=== PATIENT | male | born 1945 | race Caucasian/White ===

== ENCOUNTER 2017-05-14 14:25 | Inpatient (IN) | payer OTHER, MEDICARE ==
[~2017-05-14] VITALS: Ht 180.3 cm; Wt 129.3 kg
[~2017-05-14 14:25] MED LIST: ATEN25; IBUP200
[2017-05-14] MEDS ORDERED: BUPR75 PO (15:10)
[2017-05-14] MEDS ORDERED: BONE ESSENT166.75 MG PO (15:11)
[2017-05-14] MEDS ORDERED: Omeprazole20 M1 PO (15:11)
[2017-05-14] MEDS ORDERED: CHOL10002 PO (15:11)
[2017-05-14] MEDS ORDERED: TAMS.4ER PO (15:12)
[2017-05-14] MEDS ORDERED: Prinivil10 MG PO (18:52)
[2017-05-14 22:25] LABS: Hemoglobin 8.9 g/dL (13.5-17.5)
[2017-05-15] MEDS ORDERED: CITA20 PO (03:26)
[2017-05-15 05:03] LABS: BASOPHILS ABSOLUTE AUTO 0.01 K/mm3 (0.00-0.23); BASOPHILS PERCENT AUTO 0 % (0-2); EOSINOPHILS ABSOLUTE AUTO 0.08 K/mm3 (0.00-0.68); EOSINOPHILS PERCENT AUTO 2 % (0-6); Hematocrit 26.1 % (37.0-53.0); Hemoglobin 8.7 g/dL (13.5-17.5); IMMATURE GRAN ABSOLUTE AUTO 0.02 K/mm3 (0.00-0.10); IMMATURE GRAN PERCENT AUTO 0 % (0-1); LYMPHOCYTES ABSOLUTE AUTO 0.61 K/mm3 (0.84-5.20); LYMPHOCYTES PERCENT AUTO 13 % (21-46); MONOCYTES PERCENT AUTO 10 % (4-13); Mean Corpuscular HGB 31.3 pg (26.0-34.0); Mean Corpuscular HGB Conc 33.3 g/dL (31.5-36.5); Mean Corpuscular Volume 94 fL (80-100); NEUTROPHILS ABSOLUTE AUTO 3.66 K/mm3 (1.96-9.15); NEUTROPHILS PERCENT AUTO 75 % (41-73); Platelet Count 122 K/mm3 (150-400); RDW Coefficient Variation 13.5 % (11.7-14.2); RDW Standard Deviation 46.4 fL (35.1-46.3); Red Blood Cell Count 2.78 M/mm3 (4.30-5.90); White Blood Cell Count 4.88 K/mm3 (4.00-11.30)
[2017-05-15 05:29] LABS: Anion Gap 8 mmol/L (6-16); Blood Urea Nitrogen 16 mg/dL (8-24); Bun/Creatinine Ratio 20.9 (12.0-20.0); CO2, Blood 25 mmol/L (21-32); Calcium, Blood 8.1 mg/dL (8.5-10.1); Chloride, Blood 109 mmol/L (98-108); Creatinine, Blood 0.77 mg/dL (0.60-1.20); Glomerular Filtration Rate >60 (60-); Glucose, Blood 105 mg/dL (70-99); Potassium, Blood 3.8 mmol/L (3.5-5.5); Sodium, Blood 142 mmol/L (136-145)
[2017-05-16 05:03] LABS: BASOPHILS ABSOLUTE AUTO 0.01 K/mm3 (0.00-0.23); BASOPHILS PERCENT AUTO 0 % (0-2); EOSINOPHILS ABSOLUTE AUTO 0.08 K/mm3 (0.00-0.68); EOSINOPHILS PERCENT AUTO 2 % (0-6); Hematocrit 25.7 % (37.0-53.0); Hemoglobin 8.5 g/dL (13.5-17.5); IMMATURE GRAN ABSOLUTE AUTO 0.01 K/mm3 (0.00-0.10); IMMATURE GRAN PERCENT AUTO 0 % (0-1); LYMPHOCYTES ABSOLUTE AUTO 0.59 K/mm3 (0.84-5.20); LYMPHOCYTES PERCENT AUTO 18 % (21-46); MONOCYTES ABSOLUTE AUTO 0.35 K/mm3 (0.16-1.47); MONOCYTES PERCENT AUTO 11 % (4-13); Mean Corpuscular HGB 31.3 pg (26.0-34.0); Mean Corpuscular HGB Conc 33.1 g/dL (31.5-36.5); Mean Corpuscular Volume 95 fL (80-100); NEUTROPHILS PERCENT AUTO 69 % (41-73); Platelet Count 117 K/mm3 (150-400); RDW Coefficient Variation 13.8 % (11.7-14.2); Red Blood Cell Count 2.72 M/mm3 (4.30-5.90); White Blood Cell Count 3.34 K/mm3 (4.00-11.30)
[2017-05-16 05:23] LABS: Anion Gap 7 mmol/L (6-16); Blood Urea Nitrogen 8 mg/dL (8-24); Bun/Creatinine Ratio 10.4 (12.0-20.0); CO2, Blood 27 mmol/L (21-32); Calcium, Blood 8.2 mg/dL (8.5-10.1); Chloride, Blood 109 mmol/L (98-108); Creatinine, Blood 0.77 mg/dL (0.60-1.20); Glomerular Filtration Rate >60 (60-); Glucose, Blood 97 mg/dL (70-99); Magnesium, Blood 2.1 mg/dL (1.6-2.4); Potassium, Blood 3.6 mmol/L (3.5-5.5); Sodium, Blood 143 mmol/L (136-145)
== END 2017-05-16 17:53 | disposition home or self-care (01) | DRG 378 ==
LOC: ER 14:25 → MEDS 16:13
PROVIDERS: Hospitalist; Internal Medicine; Internal Medicine Gastroenterology
PROC: 3E0234Z Introduction of Serum, Toxoid and Vaccine into Muscle, Percutaneous Approach (ICD-10-PCS; 2017-05-14)
PROC: 0DBP8ZZ Excision of Rectum, Via Natural or Artificial Opening Endoscopic (ICD-10-PCS; 2017-05-16)
PROC: 0DBK8ZZ Excision of Ascending Colon, Via Natural or Artificial Opening Endoscopic (ICD-10-PCS; principal; 2017-05-16 15:00)
PROC: 0DBL8ZZ Excision of Transverse Colon, Via Natural or Artificial Opening Endoscopic (ICD-10-PCS; 2017-05-16 15:00)
PROC: 0D5P8ZZ Destruction of Rectum, Via Natural or Artificial Opening Endoscopic (ICD-10-PCS; 2017-05-16 15:00)
DX: K57.31 Diverticulosis of large intestine without perforation or abscess with bleeding (principal); D62 Acute posthemorrhagic anemia; C61 Malignant neoplasm of prostate; Z23 Encounter for immunization; I10 Essential (primary) hypertension; K21.9 Gastro-esophageal reflux disease without esophagitis; E66.9 Obesity, unspecified; Z68.39 Body mass index [BMI] 39.0-39.9, adult; F41.9 Anxiety disorder, unspecified; F32.9 Major depressive disorder, single episode, unspecified; K63.5 Polyp of colon; K64.8 Other hemorrhoids; K62.89 Other specified diseases of anus and rectum
CPT/HCPCS: 36415; 80048; 83735; 85014; 85018; 85025; 88305; 99285; J3480; J7120

== ENCOUNTER 2017-09-16 13:58 | Observation (INO) | payer MEDICARE ==
[~2017-09-16] VITALS: Ht 180.3 cm; Wt 125.2 kg
[~2017-09-16 13:58] MED LIST changes: +BONE ESSENT166.75 MG PO; +BUPR75 PO; +CHOL10002 PO; +CITA20 PO; +Omeprazole20 M1 PO; +Prinivil10 MG PO; +TAMS.4ER PO
[2017-09-16 14:20] LABS: BASOPHILS ABSOLUTE AUTO 0.02 K/mm3 (0.00-0.23); BASOPHILS PERCENT AUTO 0 % (0-2); EOSINOPHILS ABSOLUTE AUTO 0.09 K/mm3 (0.00-0.68); EOSINOPHILS PERCENT AUTO 2 % (0-6); Hematocrit 34.5 % (37.0-53.0); Hemoglobin 10.8 g/dL (13.5-17.5); IMMATURE GRAN ABSOLUTE AUTO 0.02 K/mm3 (0.00-0.10); IMMATURE GRAN PERCENT AUTO 0 % (0-1); LYMPHOCYTES ABSOLUTE AUTO 0.69 K/mm3 (0.84-5.20); LYMPHOCYTES PERCENT AUTO 13 % (21-46); MONOCYTES ABSOLUTE AUTO 0.49 K/mm3 (0.16-1.47); MONOCYTES PERCENT AUTO 9 % (4-13); Mean Corpuscular HGB 26.7 pg (26.0-34.0); Mean Corpuscular HGB Conc 31.3 g/dL (31.5-36.5); Mean Corpuscular Volume 85 fL (80-100); Mean Platelet Volume 10.3 fL (9.1-12.4); NEUTROPHILS ABSOLUTE AUTO 4.14 K/mm3 (1.96-9.15); NEUTROPHILS PERCENT AUTO 76 % (41-73); Platelet Count 172 K/mm3 (150-400); RDW Coefficient Variation 15.6 % (11.7-14.2); RDW Standard Deviation 48.7 fL (35.1-46.3); Red Blood Cell Count 4.04 M/mm3 (4.30-5.90); White Blood Cell Count 5.45 K/mm3 (4.00-11.30)
[2017-09-16 14:39] LABS: Alanine Aminotransfer (ALT/SGP 17 U/L (12-78); Albumin, Blood 3.6 g/dL (3.4-5.0); Albumin/Globulin Ratio 1.1 (0.8-1.8); Alk Phos 67 U/L (50-136); Anion Gap 9 mmol/L (6-16); Aspartate Aminotrans (AST/SGOT 18 U/L (12-37); Bilirubin, Total 0.8 mg/dL (0.1-1.0); Blood Urea Nitrogen 25 mg/dL (8-24); Bun/Creatinine Ratio 19.8 (12.0-20.0); CO2, Blood 27 mmol/L (21-32); Calcium, Blood 8.8 mg/dL (8.5-10.1); Chloride, Blood 106 mmol/L (98-108); Creatinine, Blood 1.26 mg/dL (0.60-1.20); Globulin, Blood 3.3 g/dL (2.2-4.0); Glomerular Filtration Rate 60 (60-); Glucose, Blood 120 mg/dL (70-99); Potassium, Blood 3.7 mmol/L (3.5-5.5); Sodium, Blood 142 mmol/L (136-145); Total Protein, Blood 6.9 g/dL (6.4-8.2); Troponin I <0.015 ng/mL (0.000-0.040)
[2017-09-17 05:18] LABS: Anion Gap 7 mmol/L (6-16); Blood Urea Nitrogen 24 mg/dL (8-24); Bun/Creatinine Ratio 24.8 (12.0-20.0); CO2, Blood 27 mmol/L (21-32); Calcium, Blood 8.5 mg/dL (8.5-10.1); Chloride, Blood 108 mmol/L (98-108); Creatinine, Blood 0.97 mg/dL (0.60-1.20); Glomerular Filtration Rate >60 (60-); Glucose, Blood 91 mg/dL (70-99); Potassium, Blood 4.2 mmol/L (3.5-5.5); Sodium, Blood 142 mmol/L (136-145); Troponin I <0.015 ng/mL (0.000-0.040)
[2017-09-17] MEDS ORDERED: CITA20 PO (16:46)
== END 2017-09-17 17:42 | disposition home or self-care (01) ==
LOC: ER 13:58 → MEDS 13:59 → ENPENDDIS 09-17 16:20 → MEDS 09-17 17:42
PROVIDERS: Emergency Medicine; Hospitalist
DX: R55 Syncope and collapse (principal); I44.0 Atrioventricular block, first degree; N17.9 Acute kidney failure, unspecified; D64.9 Anemia, unspecified; I10 Essential (primary) hypertension; F41.9 Anxiety disorder, unspecified; F32.9 Major depressive disorder, single episode, unspecified; K21.9 Gastro-esophageal reflux disease without esophagitis; Z79.899 Other long term (current) drug therapy
CPT/HCPCS: 36415; 71046; 80048; 80053; 84443; 84484; 85025; 93005; 93010; 93225; 93226; 96361; 96372; 99285; G0378; J1650; J7120

== ENCOUNTER 2017-10-22 12:36 | Inpatient (IN) | payer MEDICARE ==
[~2017-10-22] VITALS: Ht 180.3 cm; Wt 133.2 kg
[2017-10-22] MEDS ORDERED: ASPI81CH PO (12:44)
[2017-10-22 13:02] LABS: BASOPHILS ABSOLUTE AUTO 0.02 K/mm3 (0.00-0.23); BASOPHILS PERCENT AUTO 0 % (0-2); EOSINOPHILS ABSOLUTE AUTO 0.08 K/mm3 (0.00-0.68); EOSINOPHILS PERCENT AUTO 2 % (0-6); Hematocrit 33.5 % (37.0-53.0); Hemoglobin 10.7 g/dL (13.5-17.5); IMMATURE GRAN ABSOLUTE AUTO 0.01 K/mm3 (0.00-0.10); IMMATURE GRAN PERCENT AUTO 0 % (0-1); LYMPHOCYTES ABSOLUTE AUTO 0.73 K/mm3 (0.84-5.20); LYMPHOCYTES PERCENT AUTO 15 % (21-46); MONOCYTES ABSOLUTE AUTO 0.51 K/mm3 (0.16-1.47); MONOCYTES PERCENT AUTO 11 % (4-13); Mean Corpuscular HGB 27.2 pg (26.0-34.0); Mean Corpuscular HGB Conc 31.9 g/dL (31.5-36.5); Mean Corpuscular Volume 85 fL (80-100); Mean Platelet Volume 10.5 fL (9.1-12.4); NEUTROPHILS ABSOLUTE AUTO 3.41 K/mm3 (1.96-9.15); NEUTROPHILS PERCENT AUTO 72 % (41-73); Platelet Count 171 K/mm3 (150-400); RDW Standard Deviation 50.2 fL (35.1-46.3); Red Blood Cell Count 3.94 M/mm3 (4.30-5.90); White Blood Cell Count 4.76 K/mm3 (4.00-11.30)
[2017-10-22 13:12] LABS: International Normalized Ratio 1.02; Prothrombin Time Results 10.5 Sec (9.7-11.5)
[2017-10-22 13:17] LABS: Alanine Aminotransfer (ALT/SGP 29 U/L (12-78); Albumin, Blood 3.1 g/dL (3.4-5.0); Albumin/Globulin Ratio 0.9 (0.8-1.8); Alk Phos 68 U/L (50-136); Anion Gap 7 mmol/L (6-16); Aspartate Aminotrans (AST/SGOT 21 U/L (12-37); Bilirubin, Total 0.8 mg/dL (0.1-1.0); Blood Urea Nitrogen 19 mg/dL (8-24); Bun/Creatinine Ratio 19.2 (12.0-20.0); CO2, Blood 27 mmol/L (21-32); Calcium, Blood 8.8 mg/dL (8.5-10.1); Chloride, Blood 108 mmol/L (98-108); Creatinine, Blood 0.99 mg/dL (0.60-1.20); Globulin, Blood 3.5 g/dL (2.2-4.0); Glomerular Filtration Rate >60 (60-); Glucose, Blood 127 mg/dL (70-99); Potassium, Blood 3.9 mmol/L (3.5-5.5); Sodium, Blood 142 mmol/L (136-145); Total Protein, Blood 6.6 g/dL (6.4-8.2)
[2017-10-22] MEDS ORDERED: CLOP75 PO (14:32)
[2017-10-22] MEDS ORDERED: TOCO1000 PO (15:50)
[2017-10-22 16:31] LABS: Hematocrit 32.8 % (37.0-53.0); Hemoglobin 10.4 g/dL (13.5-17.5)
[2017-10-22 21:04] LABS: Hematocrit 29.1 % (37.0-53.0); Hemoglobin 9.2 g/dL (13.5-17.5)
[2017-10-23 03:00] LABS: Hematocrit 28.5 % (37.0-53.0); Mean Corpuscular HGB 27.2 pg (26.0-34.0); Mean Corpuscular HGB Conc 31.6 g/dL (31.5-36.5); Mean Corpuscular Volume 86 fL (80-100); Mean Platelet Volume 10.1 fL (9.1-12.4); Platelet Count 144 K/mm3 (150-400); RDW Coefficient Variation 16.4 % (11.7-14.2); Red Blood Cell Count 3.31 M/mm3 (4.30-5.90); White Blood Cell Count 4.49 K/mm3 (4.00-11.30)
[2017-10-23 03:16] LABS: Anion Gap 7 mmol/L (6-16); Blood Urea Nitrogen 23 mg/dL (8-24); Bun/Creatinine Ratio 24.8 (12.0-20.0); CO2, Blood 25 mmol/L (21-32); Calcium, Blood 7.9 mg/dL (8.5-10.1); Chloride, Blood 111 mmol/L (98-108); Creatinine, Blood 0.93 mg/dL (0.60-1.20); Glomerular Filtration Rate >60 (60-); Glucose, Blood 104 mg/dL (70-99); Potassium, Blood 3.9 mmol/L (3.5-5.5); Sodium, Blood 143 mmol/L (136-145)
[2017-10-23 10:59] LABS: Hematocrit 26.2 % (37.0-53.0); Hemoglobin 8.1 g/dL (13.5-17.5)
[2017-10-23 16:24] LABS: Hematocrit 24.4 % (37.0-53.0); Hemoglobin 7.7 g/dL (13.5-17.5)
[2017-10-23 20:46] LABS: Hematocrit 23.5 % (37.0-53.0); Hemoglobin 7.4 g/dL (13.5-17.5)
[2017-10-23 23:27] LABS: Hematocrit 21.3 % (37.0-53.0); Hemoglobin 6.6 g/dL (13.5-17.5)
[2017-10-23 23:58] LABS: BASOPHILS ABSOLUTE AUTO 0.01 K/mm3 (0.00-0.23); BASOPHILS PERCENT AUTO 0 % (0-2); EOSINOPHILS ABSOLUTE AUTO 0.05 K/mm3 (0.00-0.68); EOSINOPHILS PERCENT AUTO 1 % (0-6); IMMATURE GRAN ABSOLUTE AUTO 0.02 K/mm3 (0.00-0.10); IMMATURE GRAN PERCENT AUTO 0 % (0-1); LYMPHOCYTES ABSOLUTE AUTO 0.58 K/mm3 (0.84-5.20); LYMPHOCYTES PERCENT AUTO 7 % (21-46); MONOCYTES ABSOLUTE AUTO 0.47 K/mm3 (0.16-1.47); MONOCYTES PERCENT AUTO 6 % (4-13); Mean Corpuscular HGB 26.5 pg (26.0-34.0); Mean Corpuscular HGB Conc 30.2 g/dL (31.5-36.5); Mean Corpuscular Volume 88 fL (80-100); Mean Platelet Volume 10.7 fL (9.1-12.4); NEUTROPHILS ABSOLUTE AUTO 6.85 K/mm3 (1.96-9.15); NEUTROPHILS PERCENT AUTO 86 % (41-73); Platelet Count 140 K/mm3 (150-400); RDW Coefficient Variation 16.8 % (11.7-14.2); RDW Standard Deviation 53.5 fL (35.1-46.3); Red Blood Cell Count 2.45 M/mm3 (4.30-5.90); White Blood Cell Count 7.98 K/mm3 (4.00-11.30)
[2017-10-24 04:55] LABS: Hematocrit 21.9 % (37.0-53.0)
[2017-10-24 15:43] LABS: Hematocrit 22.3 % (37.0-53.0); Hemoglobin 7.2 g/dL (13.5-17.5)
[2017-10-24 22:57] LABS: Hematocrit 22.6 % (37.0-53.0); Hemoglobin 7.3 g/dL (13.5-17.5)
[2017-10-25 04:57] LABS: Hemoglobin 7.9 g/dL (13.5-17.5); Mean Corpuscular HGB 28.4 pg (26.0-34.0); Mean Corpuscular HGB Conc 32.9 g/dL (31.5-36.5); Mean Corpuscular Volume 86 fL (80-100); Mean Platelet Volume 10.6 fL (9.1-12.4); Platelet Count 119 K/mm3 (150-400); RDW Coefficient Variation 15.9 % (11.7-14.2); RDW Standard Deviation 49.6 fL (35.1-46.3); Red Blood Cell Count 2.78 M/mm3 (4.30-5.90); White Blood Cell Count 4.78 K/mm3 (4.00-11.30)
[2017-10-25 05:12] LABS: Anion Gap 5 mmol/L (6-16); Blood Urea Nitrogen 22 mg/dL (8-24); Bun/Creatinine Ratio 26.2 (12.0-20.0); CO2, Blood 27 mmol/L (21-32); Calcium, Blood 7.6 mg/dL (8.5-10.1); Chloride, Blood 112 mmol/L (98-108); Creatinine, Blood 0.84 mg/dL (0.60-1.20); Glomerular Filtration Rate >60 (60-); Glucose, Blood 102 mg/dL (70-99); Potassium, Blood 4.2 mmol/L (3.5-5.5); Sodium, Blood 144 mmol/L (136-145)
[2017-10-25 18:50] LABS: Hematocrit 22.4 % (37.0-53.0); Hemoglobin 7.2 g/dL (13.5-17.5)
[2017-10-26 05:10] LABS: Hematocrit 24.9 % (37.0-53.0); Hemoglobin 8.2 g/dL (13.5-17.5); Mean Corpuscular HGB 28.4 pg (26.0-34.0); Mean Corpuscular HGB Conc 32.9 g/dL (31.5-36.5); Mean Corpuscular Volume 86 fL (80-100); Mean Platelet Volume 11.1 fL (9.1-12.4); Platelet Count 118 K/mm3 (150-400); RDW Standard Deviation 49.7 fL (35.1-46.3); Red Blood Cell Count 2.89 M/mm3 (4.30-5.90); White Blood Cell Count 5.09 K/mm3 (4.00-11.30)
[2017-10-26 05:22] LABS: Anion Gap 5 mmol/L (6-16); Blood Urea Nitrogen 14 mg/dL (8-24); Bun/Creatinine Ratio 16.5 (12.0-20.0); CO2, Blood 28 mmol/L (21-32); Calcium, Blood 7.8 mg/dL (8.5-10.1); Chloride, Blood 111 mmol/L (98-108); Creatinine, Blood 0.85 mg/dL (0.60-1.20); Glomerular Filtration Rate >60 (60-); Glucose, Blood 94 mg/dL (70-99); Potassium, Blood 3.9 mmol/L (3.5-5.5); Sodium, Blood 144 mmol/L (136-145)
== END 2017-10-26 16:15 | disposition home or self-care (01) | DRG 378 ==
LOC: ER 12:36 → PCU 12:37 → ER 13:41 → PCU 13:41
PROVIDERS: Emergency Medicine; Internal Medicine; Internal Medicine Gastroenterology; Nurse Practitioner Acute Care
PROC: 30233N1 Transfusion of Nonautologous Red Blood Cells into Peripheral Vein, Percutaneous Approach (ICD-10-PCS; 2017-10-24)
PROC: 0W3P8ZZ Control Bleeding in Gastrointestinal Tract, Via Natural or Artificial Opening Endoscopic (ICD-10-PCS; principal; 2017-10-26 13:00)
PROC: 0DBL8ZZ Excision of Transverse Colon, Via Natural or Artificial Opening Endoscopic (ICD-10-PCS; 2017-10-26 13:00)
DX: K57.31 Diverticulosis of large intestine without perforation or abscess with bleeding (principal); D62 Acute posthemorrhagic anemia; K21.9 Gastro-esophageal reflux disease without esophagitis; I10 Essential (primary) hypertension; F32.9 Major depressive disorder, single episode, unspecified; F41.9 Anxiety disorder, unspecified; R00.1 Bradycardia, unspecified; K62.7 Radiation proctitis; K63.5 Polyp of colon; K64.8 Other hemorrhoids; Z86.73 Personal history of transient ischemic attack (TIA), and cerebral infarction without residual deficits
CPT/HCPCS: 36415; 36430; 70551; 74022; 80048; 80053; 82947; 83690; 85014; 85018; 85025; 85027; 85610; 85730; 86850; 86900; 86901; 86923; 93005; 93010; 93306; 96365; 96366; 99285-25; C1751; C9113; J7030; J7120; P9016

== ENCOUNTER 2019-09-27 10:51 | Emergency (ER) | payer OTHER, MEDICARE ==
[~2019-09-27] VITALS: Ht 180.3 cm; Wt 103.0 kg
[~2019-09-27 10:51] MED LIST changes: +ASPI81CH PO; +CLOP75 PO; +TOCO1000 PO
[2019-09-27] MEDS ORDERED: CALCIUM 500 +1 EAC3 PO (11:09)
[2019-09-27] MEDS ORDERED: [UNRECOGNIZED DRUG - OTHER] TOP (11:11)
[2019-09-27] MEDS ORDERED: LISI5 PO (11:12)
[2019-09-27] MEDS ORDERED: TAMS.4ER PO (11:14)
[2019-09-27 11:29] LABS: BASOPHILS ABSOLUTE AUTO 0.02 K/mm3 (0.00-0.23); BASOPHILS PERCENT AUTO 1 % (0-2); EOSINOPHILS ABSOLUTE AUTO 0.09 K/mm3 (0.00-0.68); EOSINOPHILS PERCENT AUTO 2 % (0-6); Hematocrit 40.2 % (37.0-53.0); IMMATURE GRAN PERCENT AUTO 0 % (0-1); LYMPHOCYTES ABSOLUTE AUTO 1.55 K/mm3 (0.84-5.20); LYMPHOCYTES PERCENT AUTO 39 % (21-46); MONOCYTES ABSOLUTE AUTO 0.34 K/mm3 (0.16-1.47); MONOCYTES PERCENT AUTO 9 % (4-13); Mean Corpuscular HGB 31.5 pg (26.0-34.0); Mean Corpuscular HGB Conc 32.3 g/dL (31.5-36.5); Mean Corpuscular Volume 97 fL (80-100); Mean Platelet Volume 10.5 fL (9.1-12.4); NEUTROPHILS ABSOLUTE AUTO 1.93 K/mm3 (1.96-9.15); NEUTROPHILS PERCENT AUTO 49 % (41-73); Platelet Count 98 K/mm3 (150-400); RDW Coefficient Variation 13.6 % (11.7-14.2); RDW Standard Deviation 48.8 fL (35.1-46.3); Red Blood Cell Count 4.13 M/mm3 (4.30-5.90); White Blood Cell Count 3.93 K/mm3 (4.00-11.30)
[2019-09-27 11:46] LABS: Alanine Aminotransfer (ALT/SGP 16 U/L (12-78); Albumin, Blood 3.6 g/dL (3.4-5.0); Albumin/Globulin Ratio 1.1 (0.8-1.8); Alk Phos 64 U/L (50-136); Anion Gap 4 mmol/L (6-16); Aspartate Aminotrans (AST/SGOT 19 U/L (12-37); Bilirubin, Total 1.1 mg/dL (0.1-1.0); Blood Urea Nitrogen 14 mg/dL (8-24); Bun/Creatinine Ratio 16.9 (12.0-20.0); CO2, Blood 29 mmol/L (21-32); Calcium, Blood 8.9 mg/dL (8.5-10.1); Chloride, Blood 108 mmol/L (98-108); Creatinine, Blood 0.83 mg/dL (0.60-1.20); Globulin, Blood 3.2 g/dL (2.2-4.0); Glomerular Filtration Rate >60 (60-); Glucose, Blood 94 mg/dL (70-99); Potassium, Blood 3.9 mmol/L (3.5-5.5); Sodium, Blood 141 mmol/L (136-145); Total Protein, Blood 6.8 g/dL (6.4-8.2)
[2019-09-27 12:21] LABS: Magnesium, Blood 2.5 mg/dL (1.6-2.4); Thyroid Stimulating Hormone 0.832 uIU/mL (0.360-4.800)
== END 2019-09-27 15:19 | disposition home or self-care (01) ==
LOC: ER 10:51
PROVIDERS: Emergency Medicine
DX: R00.1 Bradycardia, unspecified (principal); R42 Dizziness and giddiness; F41.9 Anxiety disorder, unspecified; F32.9 Major depressive disorder, single episode, unspecified; Z79.899 Other long term (current) drug therapy
CPT/HCPCS: 36415; 71045; 80053; 83735; 84443; 85025; 93005; 93010; 99284-25

== ENCOUNTER 2019-11-28 11:09 | Emergency (ER) | payer OTHER, MEDICARE ==
[~2019-11-28] VITALS: Ht 180.3 cm; Wt 99.8 kg
[~2019-11-28 11:09] MED LIST changes: +CALCIUM 500 +1 EAC3 PO; +LISI5 PO; +[UNRECOGNIZED DRUG - OTHER] TOP
[2019-11-28 12:01] LABS: BASOPHILS ABSOLUTE AUTO 0.02 K/mm3 (0.00-0.23); BASOPHILS PERCENT AUTO 0 % (0-2); EOSINOPHILS ABSOLUTE AUTO 0.08 K/mm3 (0.00-0.68); EOSINOPHILS PERCENT AUTO 2 % (0-6); Hematocrit 38.9 % (37.0-53.0); Hemoglobin 12.7 g/dL (13.5-17.5); IMMATURE GRAN ABSOLUTE AUTO 0.01 K/mm3 (0.00-0.10); IMMATURE GRAN PERCENT AUTO 0 % (0-1); LYMPHOCYTES ABSOLUTE AUTO 0.95 K/mm3 (0.84-5.20); LYMPHOCYTES PERCENT AUTO 19 % (21-46); MONOCYTES ABSOLUTE AUTO 0.37 K/mm3 (0.16-1.47); MONOCYTES PERCENT AUTO 8 % (4-13); Mean Corpuscular HGB 32.1 pg (26.0-34.0); Mean Corpuscular HGB Conc 32.6 g/dL (31.5-36.5); Mean Corpuscular Volume 98 fL (80-100); Mean Platelet Volume 10.2 fL (9.1-12.4); NEUTROPHILS ABSOLUTE AUTO 3.47 K/mm3 (1.96-9.15); NEUTROPHILS PERCENT AUTO 71 % (41-73); Platelet Count 108 K/mm3 (150-400); RDW Coefficient Variation 13.3 % (11.7-14.2); RDW Standard Deviation 47.8 fL (35.1-46.3); Red Blood Cell Count 3.96 M/mm3 (4.30-5.90)
[2019-11-28 12:24] LABS: Alanine Aminotransfer (ALT/SGP 18 U/L (12-78); Albumin, Blood 3.6 g/dL (3.4-5.0); Albumin/Globulin Ratio 1.1 (0.8-1.8); Alk Phos 74 U/L (50-136); Anion Gap 5 mmol/L (6-16); Aspartate Aminotrans (AST/SGOT 19 U/L (12-37); Blood Urea Nitrogen 15 mg/dL (8-24); Bun/Creatinine Ratio 18.2 (12.0-20.0); CO2, Blood 29 mmol/L (21-32); Calcium, Blood 9.1 mg/dL (8.5-10.1); Chloride, Blood 108 mmol/L (98-108); Creatinine, Blood 0.83 mg/dL (0.60-1.20); Globulin, Blood 3.4 g/dL (2.2-4.0); Glomerular Filtration Rate >60 (60-); Glucose, Blood 87 mg/dL (70-99); Sodium, Blood 142 mmol/L (136-145)
[2019-11-28 13:49] LABS: Source, Urine Clean Catch
[2019-11-28 13:52] LABS: Bilirubin, Urine Neg (Neg); Blood, Urine Neg (Neg); Glucose Qualitative, Urine Neg (Neg); Ketones, Urine 1+ (Neg); Leukocyte Esterase, Urine Neg (Neg); Nitrite, Urine Neg (Neg); Protein, Urine Neg (Neg); Specific Gravity, Urine 1.015 (1.003-1.022); Urobilinogen, Urine NORM (Normal)
[2019-11-28 14:12] LABS: Appearance, Urine Clear (Clear); Color, Urine Yellow (P-Yellow)
== END 2019-11-28 14:13 | disposition home or self-care (01) ==
LOC: ER 11:09
PROVIDERS: Emergency Medicine
DX: R55 Syncope and collapse (principal); I10 Essential (primary) hypertension; K21.9 Gastro-esophageal reflux disease without esophagitis; F32.9 Major depressive disorder, single episode, unspecified; F41.9 Anxiety disorder, unspecified; Z79.899 Other long term (current) drug therapy
CPT/HCPCS: 36415; 71045; 80053; 81003; 84484; 85025; 93005; 93010; 96360; 96361; 99284-25; J7030

== ENCOUNTER 2019-11-30 05:27 | Day surgery (SDC) | payer OTHER, MEDICARE ==
--- NOTE | 2019-11-30 08:18 | NUR ---
PT AND VERBALIZED UNDERSTANDING OF WRITTEN AND VERBAL D/C INST. IV REMOVED. TAKEN OUT OF THE HRT CENTER VIA W/C.
== END 2019-11-30 22:39 | disposition home or self-care (01) ==
LOC: MHTC 05:27
DX: I08.3 Combined rheumatic disorders of mitral, aortic and tricuspid valves (principal); I70.0 Atherosclerosis of aorta; K21.9 Gastro-esophageal reflux disease without esophagitis; F41.9 Anxiety disorder, unspecified; I11.9 Hypertensive heart disease without heart failure; Z79.899 Other long term (current) drug therapy; Z88.8 Allergy status to other drugs, medicaments and biological substances; E66.9 Obesity, unspecified; Z68.32 Body mass index [BMI] 32.0-32.9, adult
CPT/HCPCS: 93312; 93325; 99152; J2250; J2310; J3010; J7030

== ENCOUNTER 2020-01-25 12:23 | Day surgery (SDC) | payer OTHER, MEDICARE ==
[~2020-01-25 12:23] MED LIST changes: +ASPIR 8181 M1 PO; +CENTRUM SILVER1 EAC2 PO; +OMEP20ER PO; +OXYB5 PO
--- NOTE | 2020-01-25 15:17 | NUR ---
PT DC'D BY LIZBETH, DRIVING PT HOME
[2020-06-06] MEDS ORDERED: OMEP20ER PO (17:32)
[2020-06-06] MEDS ORDERED: OXYB5 PO (17:33)
== END 2020-01-25 23:03 | disposition home or self-care (01) ==
LOC: MHTC 12:23
DX: I48.0 Paroxysmal atrial fibrillation (principal); I08.3 Combined rheumatic disorders of mitral, aortic and tricuspid valves; I47.1 Supraventricular tachycardia; I10 Essential (primary) hypertension; K21.9 Gastro-esophageal reflux disease without esophagitis; E66.9 Obesity, unspecified; Z68.32 Body mass index [BMI] 32.0-32.9, adult; Z85.46 Personal history of malignant neoplasm of prostate; Z92.3 Personal history of irradiation; Z79.82 Long term (current) use of aspirin; Z79.899 Other long term (current) drug therapy; Z88.8 Allergy status to other drugs, medicaments and biological substances
CPT/HCPCS: 93312; 93325; J2250; J3010; J7040

== ENCOUNTER 2020-05-14 02:27 | Inpatient (IN) | payer OTHER, MEDICARE ==
[~2020-05-14] VITALS: Ht 180.3 cm; Wt 95.3 kg
[2020-05-14 03:28] LABS: BASOPHILS ABSOLUTE AUTO 0.03 K/mm3 (0.00-0.23); BASOPHILS PERCENT AUTO 1 % (0-2); EOSINOPHILS ABSOLUTE AUTO 0.14 K/mm3 (0.00-0.68); EOSINOPHILS PERCENT AUTO 3 % (0-6); Hematocrit 25.2 % (37.0-53.0); Hemoglobin 8.3 g/dL (13.5-17.5); IMMATURE GRAN ABSOLUTE AUTO 0.01 K/mm3 (0.00-0.10); IMMATURE GRAN PERCENT AUTO 0 % (0-1); LYMPHOCYTES PERCENT AUTO 38 % (21-46); MONOCYTES ABSOLUTE AUTO 0.34 K/mm3 (0.16-1.47); MONOCYTES PERCENT AUTO 7 % (4-13); Mean Corpuscular HGB 32.2 pg (26.0-34.0); Mean Corpuscular HGB Conc 32.9 g/dL (31.5-36.5); Mean Corpuscular Volume 98 fL (80-100); Mean Platelet Volume 11.2 fL (9.1-12.4); NEUTROPHILS ABSOLUTE AUTO 2.38 K/mm3 (1.96-9.15); NEUTROPHILS PERCENT AUTO 51 % (41-73); Platelet Count 135 K/mm3 (150-400); RDW Coefficient Variation 14.2 % (11.7-14.2); RDW Standard Deviation 50.7 fL (35.1-46.3); Red Blood Cell Count 2.58 M/mm3 (4.30-5.90)
[2020-05-14 03:46] LABS: Alanine Aminotransfer (ALT/SGP 16 U/L (12-78); Albumin, Blood 2.9 g/dL (3.4-5.0); Albumin/Globulin Ratio 1.1 (0.8-1.8); Alk Phos 66 U/L (50-136); Anion Gap 4 mmol/L (6-16); Aspartate Aminotrans (AST/SGOT 17 U/L (12-37); Bilirubin, Total 0.4 mg/dL (0.1-1.0); Blood Urea Nitrogen 31 mg/dL (8-24); Bun/Creatinine Ratio 38.6 (12.0-20.0); CO2, Blood 28 mmol/L (21-32); Calcium, Blood 8.4 mg/dL (8.5-10.1); Chloride, Blood 111 mmol/L (98-108); Globulin, Blood 2.7 g/dL (2.2-4.0); Glomerular Filtration Rate >60 (60-); Glucose, Blood 103 mg/dL (70-99); Potassium, Blood 4.3 mmol/L (3.5-5.5); Sodium, Blood 143 mmol/L (136-145); Total Protein, Blood 5.6 g/dL (6.4-8.2)
[2020-05-14] MEDS ORDERED: XARELTO20 MG PO (05:45)
--- NOTE | 2020-05-14 06:08 | NUR ---
ASSUMED CARE PT ARRIVED FROM ER VIA STRETCHER, STOOD AND SELF TRANSFERED TO BED; PT A&O X 4; SOFT BP; NSR ON TELE; PT STATES HE HAD A WATCHMAN PLACED IN HIS HEART AND HAS HX OF AFIB AND TAKES XARELTO; SEES DR. CASPER; DR. SOLIS AT BEDSIDE TO ASSESS PT; PT ALSO STATES HIS HAS BEEN IN THE HOSPITAL THIS PAST WEEK AND HE HAS BEEN FOCUSED ON HER AND HAS NOT BEEN ABLE TO FOCUS ON HIMSELF; O2 SATS >93 ON RA; SKIN C/D/I; FWB W/ WEEKNESS, PT STATES HE HAD SYNCOPAL EPISODE AT HOME; NO EDEMA NOTED; ORIENTED TO ROOM AND CALL LIGHT, WELL FPR AND UNIT SAFETY PROTOCOL; CALL LIGHT IN REACH; BED IN LOWEST POSITION.
--- NOTE | 2020-05-14 07:24 | NUR ---
SHIFT SUMMARY APPROXIMATELY @ 0640 PT EXPERIENCED SYNCOPAL EPISODE IN BATHROOM AFER BEING INSTRUCTED TO CALL FOR HELP BEFORE GETTING UP OFF TOILET; VSS; NSR ON TELE W/ HR 74; STATE HE DID NOT HIT HIS HEAD; FELIPE USED TO ASSIST PT BACK TO BED; SMALL SKIN TEAR ON L HAND, GAUZE AND TAPE PLACED; PT APPOLOGETIC; PT REASSURED AND ASSESSED BY THIS RN AND TWO ADDITIONAL RN'S; NOTIFIED OF FALL, INSTRUCTION PROVIDED TO MONITOR PT CLOSELY; PT CURRENTLY RESTING IN BED; NO DISTRESS NOTED; REPORT GIVEN TO MARGO ARAGON, BREA; CALL LIGHT IN REACH; BED IN LOWEST POSITION; BED ALARM ON FOR SAFETY.
[2020-05-14 09:52] LABS: Hematocrit 22.5 % (37.0-53.0); Hemoglobin 7.4 g/dL (13.5-17.5)
[2020-05-14 12:34] LABS: Influenza A, PCR NEGATIVE (NEGATIVE); Influenza B, PCR NEGATIVE (NEGATIVE); Resp Syncytial Virus, PCR NEGATIVE (NEGATIVE); SARS-Cov-2 (COVID-19) PCR, MMC NEGATIVE (NEGATIVE)
--- NOTE | 2020-05-14 12:58 | NUR ---
INTO SDS VIA GURNEY FROM PCU ROOM. History, Chart, Medications and Allergies reviewed before start of procedure.Patient confirms NPO status and agrees with scheduled surgery. Lungs clear T/O to Auscultation.
--- NOTE | 2020-05-14 13:10 | NUR ---
pt was taken to [facility] for scope.
--- NOTE | 2020-05-14 13:32 | NUR ---
05/14/20 1332 FadumoNereida Leonard History, Chart, Medications and Allergies reviewed before start of procedure.Patient confirms NPO status and agrees with scheduled surgery.3-LEAD EKG REVIEWED WITH PHYSICIAN PRIOR TO START OF PROCEDURE.MONITOR INTACT WITH CONTINUOUS PULSE OXIMETRY AND INTERMITTENT BP.O2 VIA N/C INTACT THROUGHOUT SEDATION/PROCEDURE. PATIENT DETERMINED TO BE ASA APPROPRIATE FOR PROPOFOL SEDATION PRIOR TO START OF PROCEDURE BY DR. PARNELL. Bite Block Placed.
[2020-05-14 16:30] LABS: CHOL/HDL RATIO 2.4; Cholesterol 105 mg/dL (50-200); HDL Cholesterol 44 mg/dL (>39); LDL/HDL RATIO 1.1; Low Density Lipoprotein Chol 50 mg/dL (0-110); Triglycerides 56 mg/dL (30-160); Very Low Density Lipoprot Chol 11 mg/dL (6-32)
--- NOTE | 2020-05-14 18:49 | NUR ---
pt returned from [facility] in good condition a bit groggy, states he's thirsty, gave ice chips initially. tolerated fine, states he's feeling ok, started a unit of prbc's. v.s. stable, afebrile, tolerating transfusion. got him up to bsc, he had a large soft maroon stool. denies any dizziness. call light in reach.
--- NOTE | 2020-05-14 19:25 | NUR ---
ASSUMED CARE RECEIVED BEDSIDE REPORT FROM MARGO ARAGON RN; PT SLEEPY, AWAKES EASILY; VSS; DENIES CHEST PAIN; O2 SATS >93 ON RA; BLOOD TRANSFUSION ALMOST COMPLETE; PT RESTING, TV ON, NO DISTRESS NOTED; CALL LIGHT AND BELONGINGS IN REACH; BED IN LOWEST POSITION.
[2020-05-14 20:52] LABS: Hematocrit 21.6 % (37.0-53.0); Hemoglobin 7.2 g/dL (13.5-17.5)
--- NOTE | 2020-05-14 23:40 | NUR ---
UPDATE NOTIFIED OF HGB OF 7.2 POST 1 U PRBC; CONTINUE TO TREND HGB W/ AM LAB DRAWS
[2020-05-15 04:13] LABS: BASOPHILS ABSOLUTE AUTO 0.01 K/mm3 (0.00-0.23); BASOPHILS PERCENT AUTO 0 % (0-2); EOSINOPHILS ABSOLUTE AUTO 0.11 K/mm3 (0.00-0.68); EOSINOPHILS PERCENT AUTO 2 % (0-6); Hemoglobin 7.1 g/dL (13.5-17.5); IMMATURE GRAN ABSOLUTE AUTO 0.01 K/mm3 (0.00-0.10); IMMATURE GRAN PERCENT AUTO 0 % (0-1); LYMPHOCYTES ABSOLUTE AUTO 1.44 K/mm3 (0.84-5.20); LYMPHOCYTES PERCENT AUTO 28 % (21-46); MONOCYTES ABSOLUTE AUTO 0.37 K/mm3 (0.16-1.47); MONOCYTES PERCENT AUTO 7 % (4-13); Mean Corpuscular HGB 32.6 pg (26.0-34.0); Mean Corpuscular HGB Conc 33.8 g/dL (31.5-36.5); Mean Corpuscular Volume 96 fL (80-100); Mean Platelet Volume 10.4 fL (9.1-12.4); NEUTROPHILS ABSOLUTE AUTO 3.24 K/mm3 (1.96-9.15); NEUTROPHILS PERCENT AUTO 63 % (41-73); Platelet Count 111 K/mm3 (150-400); RDW Coefficient Variation 14.8 % (11.7-14.2); RDW Standard Deviation 51.6 fL (35.1-46.3); Red Blood Cell Count 2.18 M/mm3 (4.30-5.90); White Blood Cell Count 5.18 K/mm3 (4.00-11.30)
[2020-05-15 04:37] LABS: Alanine Aminotransfer (ALT/SGP 16 U/L (12-78); Albumin, Blood 2.7 g/dL (3.4-5.0); Albumin/Globulin Ratio 1.1 (0.8-1.8); Alk Phos 52 U/L (50-136); Anion Gap 4 mmol/L (6-16); Aspartate Aminotrans (AST/SGOT 8 U/L (12-37); Bilirubin, Total 1.6 mg/dL (0.1-1.0); Blood Urea Nitrogen 28 mg/dL (8-24); Bun/Creatinine Ratio 37.1 (12.0-20.0); CO2, Blood 27 mmol/L (21-32); Chloride, Blood 114 mmol/L (98-108); Creatinine, Blood 0.75 mg/dL (0.60-1.20); Globulin, Blood 2.4 g/dL (2.2-4.0); Glomerular Filtration Rate >60 (60-); Glucose, Blood 88 mg/dL (70-99); Potassium, Blood 3.6 mmol/L (3.5-5.5); Sodium, Blood 145 mmol/L (136-145); Total Protein, Blood 5.1 g/dL (6.4-8.2)
--- NOTE | 2020-05-15 05:18 | NUR ---
SHIFT SUMMARY PT A&O X 4; PLEASANT & COMPLIANT W/ CARE; VSS; DENIES CHEST PAIN; NSR ON TELE; O2 SATS >93 ON RA; PT USES URINAL IN BED; HGB THIS AM 7.1; PT HAS NOT HAD BM DURING NOC; SLEPT SEVERAL HOURS IN BETWEEN INTERVENTIONS; CURRENTLY RESTING PEACEFULLY W/ NO DISTRESS NOTED; CALL LIGHT IN REACH; BED IN LOWEST POSITION; WILL CONTINUE TO MONITOR CLOSELY UNTIL HAND OFF TO DAY SHIFT RN.
[2020-05-15 09:41] LABS: Hematocrit 20.5 % (37.0-53.0); Hemoglobin 6.8 g/dL (13.5-17.5)
[2020-05-15 17:37] LABS: Hematocrit 22.2 % (37.0-53.0); Hemoglobin 7.6 g/dL (13.5-17.5)
--- NOTE | 2020-05-15 18:01 | NUR ---
SHIFT SUMMARY: NO ACUTE CHANGES. PT CONTINUES A&O, MAINTAINING O2 SATS >92% ON ROOM AIR, SINUS RHYTHM ON MONITOR, NO BLOODY STOOL TODAY. PT HGB LEVELS TRENDING DOWN, PT RECEIVED 2ND UNIT PRBC, TOLERATED WELL, MOST RECENT HGB RESULTS SHOW AN INCREASE. PT USED URINAL T/OUT THE DAY W/OUT DIFFICULTY. WILL CONTINUE TO MONITOR AND TREAT ACCORDINGLY UNTIL CHANGE OF SHIFT.
[2020-05-16 04:18] LABS: BASOPHILS ABSOLUTE AUTO 0.01 K/mm3 (0.00-0.23); BASOPHILS PERCENT AUTO 0 % (0-2); EOSINOPHILS ABSOLUTE AUTO 0.09 K/mm3 (0.00-0.68); EOSINOPHILS PERCENT AUTO 3 % (0-6); Hematocrit 20.2 % (37.0-53.0); Hemoglobin 6.7 g/dL (13.5-17.5); IMMATURE GRAN ABSOLUTE AUTO 0.01 K/mm3 (0.00-0.10); IMMATURE GRAN PERCENT AUTO 0 % (0-1); LYMPHOCYTES ABSOLUTE AUTO 1.18 K/mm3 (0.84-5.20); LYMPHOCYTES PERCENT AUTO 38 % (21-46); MONOCYTES ABSOLUTE AUTO 0.29 K/mm3 (0.16-1.47); MONOCYTES PERCENT AUTO 9 % (4-13); Mean Corpuscular HGB 31.5 pg (26.0-34.0); Mean Corpuscular HGB Conc 33.2 g/dL (31.5-36.5); Mean Corpuscular Volume 95 fL (80-100); Mean Platelet Volume 9.9 fL (9.1-12.4); NEUTROPHILS ABSOLUTE AUTO 1.49 K/mm3 (1.96-9.15); NEUTROPHILS PERCENT AUTO 49 % (41-73); Platelet Count 104 K/mm3 (150-400); RDW Coefficient Variation 16.2 % (11.7-14.2); RDW Standard Deviation 55.8 fL (35.1-46.3); Red Blood Cell Count 2.13 M/mm3 (4.30-5.90); White Blood Cell Count 3.07 K/mm3 (4.00-11.30)
[2020-05-16 04:46] LABS: Alanine Aminotransfer (ALT/SGP 13 U/L (12-78); Albumin, Blood 2.5 g/dL (3.4-5.0); Albumin/Globulin Ratio 1.1 (0.8-1.8); Alk Phos 49 U/L (50-136); Anion Gap 6 mmol/L (6-16); Aspartate Aminotrans (AST/SGOT 6 U/L (12-37); Bilirubin, Total 0.9 mg/dL (0.1-1.0); Blood Urea Nitrogen 19 mg/dL (8-24); Bun/Creatinine Ratio 25.6 (12.0-20.0); CO2, Blood 28 mmol/L (21-32); Calcium, Blood 7.9 mg/dL (8.5-10.1); Chloride, Blood 112 mmol/L (98-108); Creatinine, Blood 0.74 mg/dL (0.60-1.20); Globulin, Blood 2.3 g/dL (2.2-4.0); Glomerular Filtration Rate >60 (60-); Glucose, Blood 93 mg/dL (70-99); Potassium, Blood 3.4 mmol/L (3.5-5.5); Sodium, Blood 146 mmol/L (136-145); Total Protein, Blood 4.8 g/dL (6.4-8.2)
--- NOTE | 2020-05-16 06:31 | NUR ---
SHIFT SUMMARY / HGB 6.7 PT A&O X4. VSS. SPO2 > 92% ON RA. MONITOR SHOWS SB-SR, HR 50's-60's. PT HGB 6.7 THIS AM, CALL TO MD SOLIS W/ ORDER TO TRANSFUSE 1u pRBC's. PT W/ NO SIGNS OF BLEEDING THIS SHIFT. PROTONIX GTT INFUSING PER ORDERS. 1u pRBC's INFUSING PER ORDERS, PT TOLERATING WELL. WILL CONTINUE TO MONITOR & PROVIDE CARE UNTIL REPORT OFF TO DAY SHIFT RN.
--- NOTE | 2020-05-16 08:38 | NUR ---
Assisted to sit on side of bed; denied dizzyness, lightheadedness. Assisted with IV pole and tubing as he walked, using walker, to the bathroom. Instructed to pull cord on wall when he is done, and to wait for staff before standing or walking
[2020-05-16 12:29] LABS: Hematocrit 23.4 % (37.0-53.0); Hemoglobin 7.8 g/dL (13.5-17.5)
--- NOTE | 2020-05-16 17:55 | NUR ---
Pt has had good appetite today, no nausea, no complaints of any pain/discomfort. Ambulatory once today to the bathroom to have a BM; med black formed stool. Voiding using urinal, usually 200cc at a time. H & H noted improved this afternoon following administation of the 1 u PRBCs this morning.
[2020-05-17 06:07] LABS: Anion Gap 4 mmol/L (6-16); Blood Urea Nitrogen 16 mg/dL (8-24); Bun/Creatinine Ratio 20.9 (12.0-20.0); CO2, Blood 30 mmol/L (21-32); Calcium, Blood 7.9 mg/dL (8.5-10.1); Chloride, Blood 112 mmol/L (98-108); Creatinine, Blood 0.77 mg/dL (0.60-1.20); Glomerular Filtration Rate >60 (60-); Glucose, Blood 91 mg/dL (70-99); Potassium, Blood 3.7 mmol/L (3.5-5.5); Sodium, Blood 146 mmol/L (136-145)
[2020-05-17 06:10] LABS: BASOPHILS ABSOLUTE AUTO 0.01 K/mm3 (0.00-0.23); BASOPHILS PERCENT AUTO 0 % (0-2); EOSINOPHILS ABSOLUTE AUTO 0.11 K/mm3 (0.00-0.68); EOSINOPHILS PERCENT AUTO 4 % (0-6); Hematocrit 22.2 % (37.0-53.0); Hemoglobin 7.4 g/dL (13.5-17.5); IMMATURE GRAN PERCENT AUTO 0 % (0-1); LYMPHOCYTES ABSOLUTE AUTO 1.06 K/mm3 (0.84-5.20); LYMPHOCYTES PERCENT AUTO 34 % (21-46); MONOCYTES ABSOLUTE AUTO 0.27 K/mm3 (0.16-1.47); MONOCYTES PERCENT AUTO 9 % (4-13); Mean Corpuscular HGB 31.2 pg (26.0-34.0); Mean Corpuscular HGB Conc 33.3 g/dL (31.5-36.5); Mean Corpuscular Volume 94 fL (80-100); Mean Platelet Volume 10.1 fL (9.1-12.4); NEUTROPHILS ABSOLUTE AUTO 1.65 K/mm3 (1.96-9.15); NEUTROPHILS PERCENT AUTO 53 % (41-73); Platelet Count 115 K/mm3 (150-400); RDW Coefficient Variation 17.6 % (11.7-14.2); RDW Standard Deviation 59.3 fL (35.1-46.3); Red Blood Cell Count 2.37 M/mm3 (4.30-5.90)
--- NOTE | 2020-05-17 06:31 | NUR ---
SHIFT SUMMARY PT CONTINUES TO BE A&O X4. VSS. NO SIGNS OF BLEEDING THIS SHIFT. PROTONIX GTT INFUSING PER ORDERS.
--- NOTE | 2020-05-17 08:49 | NUR ---
Awake, alert and without any complaints this morning. H&H noted and also noted new order for repeat at 1030 today.
[2020-05-17 10:50] LABS: Hematocrit 25.9 % (37.0-53.0); Hemoglobin 8.7 g/dL (13.5-17.5)
--- NOTE | 2020-05-17 11:03 | NUR ---
NOted Hgb increased from 7.4 to 8.2.
--- NOTE | 2020-05-17 11:04 | NUR ---
Pt had one bowel movement this morning, more solid than yesterday, and brownish black in color, instead of black like it was yesterday.
--- NOTE | 2020-05-17 16:08 | NUR ---
Telephone report given to Concepción GUIDRY; pt to transfer to room 330 by wheelchair, taken by Edad Herrmann RN from PCU. Pt transfered independently to wheelchair with supervision. Iv protonic infusing as ordered, new bag hung just before pt left.
--- NOTE | 2020-05-17 16:47 | NUR ---
SUMMARY PT TRANSFERRED UP FROM PCU, PT ALERT AND ORIENTED, PLEASANT AND COOPERATIVE WITH CARE, VSS, WILL CONT TO MONITOR
--- NOTE | 2020-05-18 03:27 | NUR ---
CHANNEL MARKETING PROGRAM MANAGER SUMMARY PT A&OX4, ABLE TO MAKE NEEDS KNOWN PLEASANT AND COOPERATIVE TO CARE. NO C/O PAIN OR ANY DISCOMFORT THIS SHIFT. NO C/O CP, SOB, OR N&V. PT ON CONTINUOUS IV PROTONIX ORDERED. NO C/O ANY GI DISCOMFORT THIS SHIFT. PT CALM AND RESTED IN ROOM T/O SHIFT. BED AT LOWEST POSITION. CALL LIGHT WITHIN REACH.
[2020-05-18 06:05] LABS: BASOPHILS ABSOLUTE AUTO 0.01 K/mm3 (0.00-0.23); BASOPHILS PERCENT AUTO 0 % (0-2); EOSINOPHILS ABSOLUTE AUTO 0.11 K/mm3 (0.00-0.68); EOSINOPHILS PERCENT AUTO 3 % (0-6); Hematocrit 23.4 % (37.0-53.0); Hemoglobin 7.9 g/dL (13.5-17.5); IMMATURE GRAN ABSOLUTE AUTO 0.01 K/mm3 (0.00-0.10); IMMATURE GRAN PERCENT AUTO 0 % (0-1); LYMPHOCYTES ABSOLUTE AUTO 1.17 K/mm3 (0.84-5.20); LYMPHOCYTES PERCENT AUTO 34 % (21-46); MONOCYTES PERCENT AUTO 9 % (4-13); Mean Corpuscular HGB 31.7 pg (26.0-34.0); Mean Corpuscular HGB Conc 33.8 g/dL (31.5-36.5); Mean Corpuscular Volume 94 fL (80-100); Mean Platelet Volume 9.9 fL (9.1-12.4); NEUTROPHILS ABSOLUTE AUTO 1.89 K/mm3 (1.96-9.15); NEUTROPHILS PERCENT AUTO 54 % (41-73); Platelet Count 125 K/mm3 (150-400); RDW Coefficient Variation 17.2 % (11.7-14.2); RDW Standard Deviation 57.1 fL (35.1-46.3); Red Blood Cell Count 2.49 M/mm3 (4.30-5.90); White Blood Cell Count 3.49 K/mm3 (4.00-11.30)
[2020-05-18 06:26] LABS: Anion Gap 3 mmol/L (6-16); Blood Urea Nitrogen 13 mg/dL (8-24); Bun/Creatinine Ratio 16.5 (12.0-20.0); CO2, Blood 31 mmol/L (21-32); Calcium, Blood 8.3 mg/dL (8.5-10.1); Chloride, Blood 110 mmol/L (98-108); Creatinine, Blood 0.79 mg/dL (0.60-1.20); Glomerular Filtration Rate >60 (60-); Glucose, Blood 87 mg/dL (70-99); Potassium, Blood 3.7 mmol/L (3.5-5.5); Sodium, Blood 144 mmol/L (136-145)
[2020-05-18 11:06] LABS: Hematocrit 27.7 % (37.0-53.0)
--- NOTE | 2020-05-19 03:52 | NUR ---
GATE GUARD SUMMARY NO ACUTE CHANGES NOTED TO PT. A&OX4, ABLE TO MAKE NEEDS KNOWN. PLEASANT AND COOPERATIVE TO CARE. NO C/O PAIN OR ANY DISCOMFORT. DENIES CP, SOB, OR N&V. PT INDEPENDENT IN THE ROOM. PT CALM AND RESTED IN BED T/O SHIFT. BED AT LOWEST POSITION. CALL LIGHT WITHIN REACH.
[2020-05-19 05:42] LABS: BASOPHILS ABSOLUTE AUTO 0.01 K/mm3 (0.00-0.23); BASOPHILS PERCENT AUTO 0 % (0-2); EOSINOPHILS ABSOLUTE AUTO 0.13 K/mm3 (0.00-0.68); EOSINOPHILS PERCENT AUTO 4 % (0-6); Hemoglobin 7.9 g/dL (13.5-17.5); IMMATURE GRAN ABSOLUTE AUTO 0.01 K/mm3 (0.00-0.10); IMMATURE GRAN PERCENT AUTO 0 % (0-1); LYMPHOCYTES ABSOLUTE AUTO 1.06 K/mm3 (0.84-5.20); LYMPHOCYTES PERCENT AUTO 30 % (21-46); MONOCYTES ABSOLUTE AUTO 0.35 K/mm3 (0.16-1.47); MONOCYTES PERCENT AUTO 10 % (4-13); Mean Corpuscular HGB 31.1 pg (26.0-34.0); Mean Corpuscular HGB Conc 32.9 g/dL (31.5-36.5); Mean Corpuscular Volume 95 fL (80-100); Mean Platelet Volume 9.3 fL (9.1-12.4); NEUTROPHILS ABSOLUTE AUTO 2.01 K/mm3 (1.96-9.15); NEUTROPHILS PERCENT AUTO 56 % (41-73); Platelet Count 125 K/mm3 (150-400); RDW Coefficient Variation 16.5 % (11.7-14.2); RDW Standard Deviation 56.1 fL (35.1-46.3); Red Blood Cell Count 2.54 M/mm3 (4.30-5.90); White Blood Cell Count 3.57 K/mm3 (4.00-11.30)
[2020-05-19 06:01] LABS: Anion Gap 4 mmol/L (6-16); Blood Urea Nitrogen 12 mg/dL (8-24); Bun/Creatinine Ratio 14.2 (12.0-20.0); CO2, Blood 30 mmol/L (21-32); Calcium, Blood 8.5 mg/dL (8.5-10.1); Chloride, Blood 110 mmol/L (98-108); Creatinine, Blood 0.84 mg/dL (0.60-1.20); Glomerular Filtration Rate >60 (60-); Glucose, Blood 88 mg/dL (70-99); Potassium, Blood 3.8 mmol/L (3.5-5.5); Sodium, Blood 144 mmol/L (136-145)
[2020-05-19] MEDS ORDERED: ATOR20 PO (09:12)
[2020-05-19] MEDS ORDERED: PANT40 PO (09:15)
--- NOTE | 2020-05-19 10:34 | NUR ---
DISCHARGED HOME. VERBALIZED UNDERSTANDING OF THE DISCHARGE ORDERS AND ALL QUESTIONS ANSWERED. PERSONAL POSSESSIONS SENT WITH PATIENT.
[2020-06-06] MEDS ORDERED: OMEP20ER PO (17:32)
[2020-06-06] MEDS ORDERED: OXYB5 PO (17:33)
== END 2020-05-19 10:20 | disposition home or self-care (01) | DRG 378 ==
LOC: ER 02:27 → PCU 02:28 → ER 03:57 → PCU 03:57 → EDBEDREQSVC 05:26 → EDBEDREQTM 05:26 → EDBEDREQ 05:26 → PCU 05:35 → MEDS 05-17 16:09 → ENPENDDIS 05-19 09:44 → MEDS 05-19 10:20
PROVIDERS: Emergency Medicine; Internal Medicine; Internal Medicine Cardiovascular Disease; Internal Medicine Gastroenterology; ADMIT Internal Medicine
PROC: 0DJ08ZZ Inspection of Upper Intestinal Tract, Via Natural or Artificial Opening Endoscopic (ICD-10-PCS; principal; 2020-05-14 12:00)
DX: K25.4 Chronic or unspecified gastric ulcer with hemorrhage (principal); D68.32 Hemorrhagic disorder due to extrinsic circulating anticoagulants; D62 Acute posthemorrhagic anemia; I48.0 Paroxysmal atrial fibrillation; F32.9 Major depressive disorder, single episode, unspecified; F41.9 Anxiety disorder, unspecified; I10 Essential (primary) hypertension; Z85.46 Personal history of malignant neoplasm of prostate; Z79.899 Other long term (current) drug therapy; Z90.49 Acquired absence of other specified parts of digestive tract; Z20.822 Contact with and (suspected) exposure to COVID-19; Z98.890 Other specified postprocedural states; K21.9 Gastro-esophageal reflux disease without esophagitis; K62.7 Radiation proctitis; E78.5 Hyperlipidemia, unspecified
CPT/HCPCS: 0241U; 36415; 36430; 74176; 80048; 80053; 80061; 83690; 85014; 85018; 85025; 86850; 86900; 86901; 86923; 93005; 93010; 96365; 96376; 99285-25; A9270; C9113; G0378; J2704; J7030; J7050; J7120; P9016

== ENCOUNTER 2020-06-07 12:04 | Day surgery (SDC) | payer OTHER, MEDICARE ==
[~2020-06-07 12:04] MED LIST changes: +ATOR20 PO; +PANT40 PO; +XARELTO20 MG PO
[2020-06-07] MEDS ORDERED: ASPI81CH PO (14:22)
--- NOTE | 2020-06-07 14:59 | NUR ---
DISCHARGE INSTRUCTIONS GIVEN TO AND PATIENT. PATIENT DRINKING WATER WITHOUT DIFFICULTY,SITTING AT EDGE OF BED, DRESSED, DENIES DIZZINESS.IV SITE DCED WITH CATHETER INTACT, PATIENT TRANSFERRED VIA WHEELCHAIR TO CAR WITH .
== END 2020-06-07 22:46 | disposition home or self-care (01) ==
LOC: MHTC 12:04
DX: I48.0 Paroxysmal atrial fibrillation (principal); I10 Essential (primary) hypertension; Q21.1 Atrial septal defect; K21.9 Gastro-esophageal reflux disease without esophagitis; E66.9 Obesity, unspecified; I70.0 Atherosclerosis of aorta; E78.5 Hyperlipidemia, unspecified; F41.9 Anxiety disorder, unspecified; F32.9 Major depressive disorder, single episode, unspecified; Z95.818 Presence of other cardiac implants and grafts; Z85.46 Personal history of malignant neoplasm of prostate; Z92.3 Personal history of irradiation; Z88.8 Allergy status to other drugs, medicaments and biological substances; Z68.30 Body mass index [BMI] 30.0-30.9, adult; Z87.19 Personal history of other diseases of the digestive system
CPT/HCPCS: 93312; 93325; 99152; 99153; A9270; J2250; J3010; J7030

== ENCOUNTER 2020-06-16 16:13 | Observation (INO) | payer OTHER, MEDICARE ==
[~2020-06-16] VITALS: Ht 180.3 cm; Wt 102.0 kg
[2020-06-16] MEDS ORDERED: VITAMIN D5000 UNIT PO (17:15)
[2020-06-16] MEDS ORDERED: CALCIUM CIT 311 EACH PO (17:16)
[2020-06-16] MEDS ORDERED: CARBOXYMETHYLCE15 ML BOTHEYES (17:17)
[2020-06-16] MEDS ORDERED: FERROUS SULFAT325 M3 PO (17:20)
[2020-06-16] MEDS ORDERED: [UNRECOGNIZED DRUG - CODE] PO (17:21)
[2020-06-16 18:11] LABS: BASOPHILS ABSOLUTE AUTO 0.01 K/mm3 (0.00-0.23); BASOPHILS PERCENT AUTO 0 % (0-2); EOSINOPHILS ABSOLUTE AUTO 0.12 K/mm3 (0.00-0.68); EOSINOPHILS PERCENT AUTO 3 % (0-6); Hematocrit 31.8 % (37.0-53.0); Hemoglobin 9.8 g/dL (13.5-17.5); IMMATURE GRAN PERCENT AUTO 0 % (0-1); LYMPHOCYTES ABSOLUTE AUTO 1.64 K/mm3 (0.84-5.20); LYMPHOCYTES PERCENT AUTO 41 % (21-46); MONOCYTES ABSOLUTE AUTO 0.36 K/mm3 (0.16-1.47); MONOCYTES PERCENT AUTO 9 % (4-13); Mean Corpuscular HGB 29.1 pg (26.0-34.0); Mean Corpuscular HGB Conc 30.8 g/dL (31.5-36.5); Mean Corpuscular Volume 94 fL (80-100); Mean Platelet Volume 9.7 fL (9.1-12.4); NEUTROPHILS ABSOLUTE AUTO 1.87 K/mm3 (1.96-9.15); NEUTROPHILS PERCENT AUTO 47 % (41-73); Platelet Count 131 K/mm3 (150-400); RDW Coefficient Variation 14.1 % (11.7-14.2); RDW Standard Deviation 48.9 fL (35.1-46.3); Red Blood Cell Count 3.37 M/mm3 (4.30-5.90)
[2020-06-16 18:32] LABS: Magnesium, Blood 2.1 mg/dL (1.6-2.4)
[2020-06-16 18:53] LABS: Anion Gap 4 mmol/L (6-16); Blood Urea Nitrogen 20 mg/dL (8-24); Bun/Creatinine Ratio 23.9 (12.0-20.0); CO2, Blood 27 mmol/L (21-32); Calcium, Blood 8.4 mg/dL (8.5-10.1); Chloride, Blood 109 mmol/L (98-108); Creatinine, Blood 0.84 mg/dL (0.60-1.20); Glomerular Filtration Rate >60 (60-); Glucose, Blood 80 mg/dL (70-99); Phosphorus, Blood 3.5 mg/dL (2.5-4.9); Sodium, Blood 140 mmol/L (136-145)
--- NOTE | 2020-06-16 19:11 | NUR ---
SHIFT SUMMARY: PT IS DIRECT ADMIT FROM [facility] FOR DX OF MOBITZ II AV BLOCK. PT ARRIVES TO UNIT A&OX4, SATS >93% ON ROOM AIR, DENIES SOB, BRADYCARDIA ON MONITOR, DENIES CHEST PAIN/PRESSURE, DENIES LIGHTHEADEDNESS OR DIZZINESS AT THIS TIME. DR LOREDO TO AND FROM BEDSIDE FOR CARDIOLOGY CONSULT. PLAN IS TO MONITOR PT FOR SYMPTOMATIC CHANGES TO HEART. REPORT HAS BEEN GIVEN TO BREA NARANJO TO ASSUME CARE OF PT.
--- NOTE | 2020-06-16 19:53 | NUR ---
ASSUMED CARE. PT IS A/O X4, SBA TO BATHROOM. PT RESTING IN BED. VSS. DENIES FURTHER NEEDS.
[2020-06-17 04:23] LABS: BASOPHILS ABSOLUTE AUTO 0.02 K/mm3 (0.00-0.23); BASOPHILS PERCENT AUTO 1 % (0-2); EOSINOPHILS ABSOLUTE AUTO 0.16 K/mm3 (0.00-0.68); EOSINOPHILS PERCENT AUTO 4 % (0-6); Hematocrit 28.9 % (37.0-53.0); IMMATURE GRAN ABSOLUTE AUTO 0.01 K/mm3 (0.00-0.10); IMMATURE GRAN PERCENT AUTO 0 % (0-1); LYMPHOCYTES ABSOLUTE AUTO 1.53 K/mm3 (0.84-5.20); LYMPHOCYTES PERCENT AUTO 42 % (21-46); MONOCYTES ABSOLUTE AUTO 0.37 K/mm3 (0.16-1.47); MONOCYTES PERCENT AUTO 10 % (4-13); Mean Corpuscular HGB 29.1 pg (26.0-34.0); Mean Corpuscular HGB Conc 31.1 g/dL (31.5-36.5); Mean Corpuscular Volume 94 fL (80-100); NEUTROPHILS PERCENT AUTO 43 % (41-73); Platelet Count 127 K/mm3 (150-400); RDW Standard Deviation 47.7 fL (35.1-46.3); Red Blood Cell Count 3.09 M/mm3 (4.30-5.90); White Blood Cell Count 3.69 K/mm3 (4.00-11.30)
--- NOTE | 2020-06-17 04:26 | NUR ---
SHIFT SUMMARY PT IS A/O X4, PLEASANT AND COOPERATIVE WITH CARE. IND OR SBA UP TO BATHROOM AND REPOSITIONING SELF IN BED. PT IS TOLERATING PO INTAKE AND VOIDING. DENIES CHEST PAIN/PRESSURE, SOB, AND DIZZINESS OVERNIGHT. PER TELE PT HAS BEEN BRADYCARDIC IN THE HIGH 40'S-50'S. PT IS RESTING AT THIS TIME, CALL LIGHT IN REACH.
[2020-06-17 04:57] LABS: Anion Gap 3 mmol/L (6-16); Blood Urea Nitrogen 16 mg/dL (8-24); Bun/Creatinine Ratio 19.6 (12.0-20.0); CO2, Blood 29 mmol/L (21-32); Calcium, Blood 8.1 mg/dL (8.5-10.1); Chloride, Blood 110 mmol/L (98-108); Creatinine, Blood 0.82 mg/dL (0.60-1.20); Glomerular Filtration Rate >60 (60-); Glucose, Blood 81 mg/dL (70-99); Potassium, Blood 3.8 mmol/L (3.5-5.5); Sodium, Blood 142 mmol/L (136-145)
[2020-06-17 08:59] LABS: Free Thyroxine 0.85 ng/dL (0.70-1.60)
[2020-06-17 09:00] LABS: Thyroid Stimulating Hormone 1.03 uIU/mL (0.360-4.800); Triiodothyronine, Free 1.86 pg/mL (2.18-3.98)
--- NOTE | 2020-06-17 11:05 | NUR ---
PT ALERT AND ORIENTED X4. ON ROOM AIR SATING ABOVE 92%. TELE SHOWING SINUS CARISSA WITH HR IN 50'S. DENIES CHEST PAIN. DENIES PAIN OVERALL. VITAL SIGNS STABLE. WALK THIS AFTERNOON AROUND UNIT. NO CHANGES IN TELE RHYTHM. HR INCREASED FROM LOW 50'S TO A HIGH OF 68. PT DENIES DIZZINESS, BUT COMPLAINS OF A "FUZZINESS" IN HEAD. DOES NOT ATTRIBUTE THE FUZZY FEELING DIZZINESS. NO CHANGES IN VISION. RESPIRATORY RATE REMAINS UNCHANGED. PT BACK IN BED. UPON REASSESSMENT 5 MIN LATER PT COMPLAINS OF SLIGHT HEADACHE, WHICH HE CLAIMS HE NORMALLY DOES NOT GET. DENIES ANY TYLENOL FOR HEADACHE. WILL CONTINUE TO MONITOR. VITAL SIGNS STABLE AFTER WALK WITH A SLIGHTLY ELEVATED BP.
--- NOTE | 2020-06-17 11:57 | NUR ---
Echocardiogram completed.
--- NOTE | 2020-06-17 12:45 | NUR ---
PT UP TO BATHROOM, DENIES DIZZINESS. HR ELEVATED TO 77 UPON AMBULATING. WILL CONTINUE TO MONITOR.
--- NOTE | 2020-06-17 17:37 | NUR ---
PT VITAL SIGNS REMAIN STABLE. NO ACUTE CHANGES. SEE PREVIOUS NOTE. DENIES DIZZINESS AND PAIN. IN TO SEE PATIENT. NO NEEDS AT THIS TIME. PT EATING WELL. CALL LIGHT REMAINED IN REACH, AND PT EDUCATED ON FALL PREVENTION. TELE REMAINS SB WITH FHB AND HR IN 50'S. WILL CONTINUE TO MONITOR AND REPORT OFF.
--- NOTE | 2020-06-17 21:10 | NUR ---
PT REPORTS THAT STAFF HAS HAD DIFFICULTIES STARTING AND KEEPING GOOD IVs. HE REQUESTED THE IV IN HIS R AC BE LEFT IN PLACE AT THIS TIME D/T MINIMAL LEAKING AND NO IV MEDICATIONS CURRENTLY ORDERED.
--- NOTE | 2020-06-18 | NUR ---
GAVE REPORT TO BREA GUILLEN.
--- NOTE | 2020-06-18 00:17 | NUR ---
RESUMED CARE FOR THIS PATIENT AT THIS TIME
[2020-06-18 04:07] LABS: BASOPHILS ABSOLUTE AUTO 0.02 K/mm3 (0.00-0.23); BASOPHILS PERCENT AUTO 1 % (0-2); EOSINOPHILS ABSOLUTE AUTO 0.09 K/mm3 (0.00-0.68); EOSINOPHILS PERCENT AUTO 3 % (0-6); IMMATURE GRAN PERCENT AUTO 0 % (0-1); LYMPHOCYTES PERCENT AUTO 38 % (21-46); MONOCYTES ABSOLUTE AUTO 0.35 K/mm3 (0.16-1.47); MONOCYTES PERCENT AUTO 10 % (4-13); Mean Corpuscular HGB 28.6 pg (26.0-34.0); Mean Corpuscular Volume 92 fL (80-100); Mean Platelet Volume 9.8 fL (9.1-12.4); NEUTROPHILS ABSOLUTE AUTO 1.69 K/mm3 (1.96-9.15); NEUTROPHILS PERCENT AUTO 49 % (41-73); Platelet Count 128 K/mm3 (150-400); RDW Coefficient Variation 13.9 % (11.7-14.2); RDW Standard Deviation 46.8 fL (35.1-46.3); Red Blood Cell Count 3.15 M/mm3 (4.30-5.90); White Blood Cell Count 3.45 K/mm3 (4.00-11.30)
[2020-06-18 04:28] LABS: Anion Gap 2 mmol/L (6-16); Blood Urea Nitrogen 18 mg/dL (8-24); Bun/Creatinine Ratio 21.3 (12.0-20.0); CO2, Blood 31 mmol/L (21-32); Calcium, Blood 8.3 mg/dL (8.5-10.1); Chloride, Blood 109 mmol/L (98-108); Creatinine, Blood 0.85 mg/dL (0.60-1.20); Glomerular Filtration Rate >60 (60-); Glucose, Blood 80 mg/dL (70-99); Magnesium, Blood 2.1 mg/dL (1.6-2.4); Phosphorus, Blood 3.9 mg/dL (2.5-4.9); Potassium, Blood 3.8 mmol/L (3.5-5.5); Sodium, Blood 142 mmol/L (136-145)
--- NOTE | 2020-06-18 05:24 | NUR ---
shift summary pt rested well through night. alert and oriented, able to make needs known. cooperative with plan of care. sats >90% on room air. tele sinus west. no c/o pain. voidoing to urinal. no bm. independent in room. vss. call light within reach, bed in lowest position. will continue to monitor.
--- NOTE | 2020-06-18 10:12 | NUR ---
PT ALERT AND ORIENTED X4. ON ROOM AIR SATING ABOVE 92%. TELE SHOWING SINUS CARISSA WITH HR IN THE 50'S. DENIES CHEST PAIN/PRESSURE. DENIES FEELING DIZZY, LIGHTHEADED, OR FAINT. UP TO BATHROOM IN ROOM WITH NO DIZZINESS. VITAL SIGNS STABLE. WILL CONTINUE TO MONITOR.
--- NOTE | 2020-06-18 13:24 | NUR ---
TRANSFER TO MEDICAL. NO ACUTE CHANGES SEE PREVIOUS NOTE FOR UPDATES. PT SITTING IN CHAIR BY WINDOW IN ROOM FOR AFTERNOON. EATING WELL. DENIES DIZZINESS. TELE SHOWING SINUS CARISSA WITH HR IN 50'S. TRANSFER UP TO MEDICAL VIA WHEELCHAIR.
--- NOTE | 2020-06-18 14:13 | NUR ---
TRANSFER PT TRANSFERED UP FROM PCU TO ROOM 363, ORIENTED PT TO ROOM AND CALL SYSTEM, PT INDEPENDENT IN THE ROOM, CONFIRMED TELE WITH TECH
--- NOTE | 2020-06-18 17:21 | NUR ---
SUMMARY PT RESTING QUIETLY IN BED, VISITING WITH HIS SPOUSE, PT HAS BEEN PLEASANT AND COOPERATIVE WITH CARE, INDEPENDENT IN THE ROOM, PT DENIES ANY DIZZINESS AT ALL SINCE TRANSFER, POSSIBLE DC HOME SOON, NO COMPLAINTS, VSS, WILL CONTINUE TO MONITOR
[2020-06-19 05:15] LABS: BASOPHILS ABSOLUTE AUTO 0.02 K/mm3 (0.00-0.23); BASOPHILS PERCENT AUTO 1 % (0-2); EOSINOPHILS ABSOLUTE AUTO 0.12 K/mm3 (0.00-0.68); EOSINOPHILS PERCENT AUTO 3 % (0-6); Hematocrit 29.9 % (37.0-53.0); Hemoglobin 9.3 g/dL (13.5-17.5); IMMATURE GRAN PERCENT AUTO 0 % (0-1); LYMPHOCYTES ABSOLUTE AUTO 1.44 K/mm3 (0.84-5.20); LYMPHOCYTES PERCENT AUTO 41 % (21-46); MONOCYTES ABSOLUTE AUTO 0.34 K/mm3 (0.16-1.47); MONOCYTES PERCENT AUTO 10 % (4-13); Mean Corpuscular HGB 28.6 pg (26.0-34.0); Mean Corpuscular HGB Conc 31.1 g/dL (31.5-36.5); Mean Corpuscular Volume 92 fL (80-100); Mean Platelet Volume 10.3 fL (9.1-12.4); NEUTROPHILS PERCENT AUTO 45 % (41-73); Platelet Count 130 K/mm3 (150-400); RDW Coefficient Variation 13.8 % (11.7-14.2); Red Blood Cell Count 3.25 M/mm3 (4.30-5.90); White Blood Cell Count 3.52 K/mm3 (4.00-11.30)
[2020-06-19 05:42] LABS: Anion Gap 5 mmol/L (6-16); Blood Urea Nitrogen 19 mg/dL (8-24); Bun/Creatinine Ratio 25.5 (12.0-20.0); CO2, Blood 28 mmol/L (21-32); Calcium, Blood 8.4 mg/dL (8.5-10.1); Chloride, Blood 109 mmol/L (98-108); Creatinine, Blood 0.75 mg/dL (0.60-1.20); Glomerular Filtration Rate >60 (60-); Glucose, Blood 74 mg/dL (70-99); Potassium, Blood 3.8 mmol/L (3.5-5.5); Sodium, Blood 142 mmol/L (136-145)
--- NOTE | 2020-06-19 06:40 | NUR ---
SHIFT SUMMARY PT IS A 75 Y/O MALE, ADMITTED FOR A MOBITZ II HEART BLOCK. HE IS A&O X 4, INDEPENDENT IN THE ROOM. PT DENIED ANY C/O CHEST PAIN, NAUSEA, SOB, OR DIZZINESS. VITAL SIGNS STABLE. TELE MONITOR SHOWED NSR C FDB IN THE 60S. PT SLEPT WELL THROUGH THE NIGHT. NO ACUTE CHANGES IN PT CONDITION NOTED. WILL CONTINUE TO MONITOR AND TREAT PER EMAR UNTIL HAND OFF TO DAY SHIFT RN.
--- NOTE | 2020-06-19 17:21 | NUR ---
PT AOX4 AND COOPERATIVE OF CARE. PT WAS ASYMPTOMATIC TODAY WITH HR AND HAS A ZIO PATCH PLACED PER DR LOREDO'S ORDER. EVERYTHING WAS SET INTO PLACE FOR PT TO HAVE THE MONITOR FOR A MONTH AND TO HAVE DR CASPER FOLLOW UP WITH THE RESULTS. PT DENIED ANY PAIN AND HAD NO EPISODES OF FAINTING OR SYNCOPE. NO HR LOWER THAN 50 NOTED. PT INDEPENDENT IN ROOM AND COOPERATIVE OF ALL CARE. DIRECTIONS AND APPOINTMENT SCHEDULING REVIEWED WITH PT ALONG WITH ALL PAPERWORK AND EDUCATIONAL MATERIAL. PT ESCORTED OUT VIA WHEEL CHAIR BY STUDENT NURSE TO N ENTRANCE. ALL PERONAL BELONINGS COLLECTED AND WITH PT.
--- NOTE | 2020-06-19 23:52 | NUR ---
ADMIT: 06/16/20 DISCHARGE: 06/19/20 DX: Mobits II AV block CC: cpeabody MARIBEL CALL: call Patrice at home for maribel- f/u 1 week with maribel physician. RESIDENCE: Home CAREGIVER: Marli Sr, Spouse / Partner, DX: Afib, GERD, Depressive disorder, hyperlipidemia, see list DME: none CCM: none HOME HEALTH: none SUMMARY: Admit: 06/16/20 06/19/20 Discharged home today with ZIO Patch. Dr Iniguez recommends Cardiology f/u in 2-3 weeks. [facility] follow up in 1 week with MARIBEL physician at [facility]. Met with Patrice, independent in his own care and mobility. no care needs identified for discharge. cp
== END 2020-06-19 15:52 | disposition home or self-care (01) ==
LOC: PCU 16:13 → MEDS 16:13 → PCU 16:49 → MEDS 06-18 13:08 → ENPENDDIS 06-19 15:16 → MEDS 06-19 15:52
PROVIDERS: Internal Medicine Cardiovascular Disease; ADMIT Internal Medicine
DX: I44.0 Atrioventricular block, first degree (principal); I49.5 Sick sinus syndrome; I48.0 Paroxysmal atrial fibrillation; I47.1 Supraventricular tachycardia; I10 Essential (primary) hypertension; I70.0 Atherosclerosis of aorta; E78.5 Hyperlipidemia, unspecified; D64.9 Anemia, unspecified; K21.9 Gastro-esophageal reflux disease without esophagitis; F41.9 Anxiety disorder, unspecified; F32.9 Major depressive disorder, single episode, unspecified; E66.9 Obesity, unspecified; Z79.899 Other long term (current) drug therapy; Z79.82 Long term (current) use of aspirin
CPT/HCPCS: 36415; 80048; 83735; 84100; 84439; 84443; 84481; 85025; 93005; 93010; 93246; 93306; A9270; A9270-GY; G0378

== ENCOUNTER 2020-07-15 08:54 | Observation (INO) | payer OTHER, MEDICARE ==
[~2020-07-15] VITALS: Ht 180.3 cm; Wt 108.9 kg
[~2020-07-15 08:54] MED LIST changes: +CALCIUM CIT 311 EACH PO; +CARBOXYMETHYLCE15 ML BOTHEYES; +FERROUS SULFAT325 M3 PO; +VITAMIN D5000 UNIT PO; +[UNRECOGNIZED DRUG - CODE] PO
[2020-07-15 09:40] LABS: BASOPHILS ABSOLUTE AUTO 0.02 K/mm3 (0.00-0.23); BASOPHILS PERCENT AUTO 1 % (0-2); EOSINOPHILS ABSOLUTE AUTO 0.07 K/mm3 (0.00-0.68); EOSINOPHILS PERCENT AUTO 3 % (0-6); Hematocrit 31.8 % (37.0-53.0); Hemoglobin 9.9 g/dL (13.5-17.5); IMMATURE GRAN ABSOLUTE AUTO 0.01 K/mm3 (0.00-0.10); IMMATURE GRAN PERCENT AUTO 0 % (0-1); LYMPHOCYTES ABSOLUTE AUTO 0.61 K/mm3 (0.84-5.20); LYMPHOCYTES PERCENT AUTO 24 % (21-46); MONOCYTES ABSOLUTE AUTO 0.25 K/mm3 (0.16-1.47); MONOCYTES PERCENT AUTO 10 % (4-13); Mean Corpuscular HGB Conc 31.1 g/dL (31.5-36.5); Mean Corpuscular Volume 90 fL (80-100); Mean Platelet Volume 9.8 fL (9.1-12.4); NEUTROPHILS ABSOLUTE AUTO 1.57 K/mm3 (1.96-9.15); NEUTROPHILS PERCENT AUTO 62 % (41-73); Platelet Count 150 K/mm3 (150-400); RDW Coefficient Variation 14.3 % (11.7-14.2); RDW Standard Deviation 46.8 fL (35.1-46.3); Red Blood Cell Count 3.53 M/mm3 (4.30-5.90); White Blood Cell Count 2.53 K/mm3 (4.00-11.30)
[2020-07-15 09:58] LABS: Alanine Aminotransfer (ALT/SGP 19 U/L (12-78); Albumin, Blood 3.5 g/dL (3.4-5.0); Albumin/Globulin Ratio 1.2 (0.8-1.8); Alk Phos 66 U/L (50-136); Anion Gap 4 mmol/L (6-16); Aspartate Aminotrans (AST/SGOT 15 U/L (12-37); Bilirubin, Total 0.8 mg/dL (0.1-1.0); Blood Urea Nitrogen 16 mg/dL (8-24); Bun/Creatinine Ratio 16.5 (12.0-20.0); CO2, Blood 28 mmol/L (21-32); Calcium, Blood 8.7 mg/dL (8.5-10.1); Chloride, Blood 108 mmol/L (98-108); Creatinine, Blood 0.97 mg/dL (0.60-1.20); Glomerular Filtration Rate >60 (60-); Glucose, Blood 93 mg/dL (70-99); Potassium, Blood 3.7 mmol/L (3.5-5.5); Sodium, Blood 140 mmol/L (136-145); Total Protein, Blood 6.5 g/dL (6.4-8.2); Troponin I <0.015 ng/mL (0.000-0.040)
--- NOTE | 2020-07-15 19:18 | NUR ---
PT ADMIT TO PCU AT 1730, FROM [facility]ART CENTER POST PACER PLACEMENT. VITAL SIGNS STABLE. PACER INCISION TO RIGHT UPPER CHEST WALL. PRESSURE DRESSING OVER SURGICAL DRESSING, PER HEART CENTER NURSE PRESSURE DRESSING CAN BE REMOVED IN 6 HOURS. TELE SHOWING SINUS WITH HR 60'S. EKG DONE POST PACER WELL CHEST XRAY. IV FLUIDS INFUSING AND ANCEF INFUSED. PT ABLE TO EAT DINNER. RIGHT ARM IN SLING, EDUCATED ON POST PACER RESTRICTIONS AND LIMITATIONS. SCD'S IN PLACE. REPORTED OFF TO ONCOMING NURSE.
--- NOTE | 2020-07-15 20:32 | NUR ---
ASSUMED CARE PT IS ALERT AND ORIENTED X4. VITALS ARE STABLE. PAIN IN RT SHOULDER 2/10. DENIES CP OR SOB. ON ROOM AIR. PT URINAL AT BESIDE. CALL LIGHT IS WITHIN REACH. WILL CONTINUE TO MONITOR.
[2020-07-16 04:06] LABS: BASOPHILS ABSOLUTE AUTO 0.01 K/mm3 (0.00-0.23); BASOPHILS PERCENT AUTO 0 % (0-2); EOSINOPHILS ABSOLUTE AUTO 0.06 K/mm3 (0.00-0.68); EOSINOPHILS PERCENT AUTO 2 % (0-6); Hematocrit 29.8 % (37.0-53.0); Hemoglobin 9.1 g/dL (13.5-17.5); IMMATURE GRAN ABSOLUTE AUTO 0.01 K/mm3 (0.00-0.10); IMMATURE GRAN PERCENT AUTO 0 % (0-1); LYMPHOCYTES ABSOLUTE AUTO 0.93 K/mm3 (0.84-5.20); LYMPHOCYTES PERCENT AUTO 27 % (21-46); MONOCYTES ABSOLUTE AUTO 0.31 K/mm3 (0.16-1.47); MONOCYTES PERCENT AUTO 9 % (4-13); Mean Corpuscular HGB 27.2 pg (26.0-34.0); Mean Corpuscular HGB Conc 30.5 g/dL (31.5-36.5); Mean Corpuscular Volume 89 fL (80-100); Mean Platelet Volume 9.1 fL (9.1-12.4); NEUTROPHILS ABSOLUTE AUTO 2.07 K/mm3 (1.96-9.15); NEUTROPHILS PERCENT AUTO 61 % (41-73); Platelet Count 127 K/mm3 (150-400); RDW Coefficient Variation 14.3 % (11.7-14.2); RDW Standard Deviation 46.4 fL (35.1-46.3); Red Blood Cell Count 3.34 M/mm3 (4.30-5.90); White Blood Cell Count 3.39 K/mm3 (4.00-11.30)
--- NOTE | 2020-07-16 04:26 | NUR ---
SHIFT SUMMARY PT IS ALERT AND ORIENTED. VITALS ARE STABLE AND SATS ABOVE 92% ON ROOM AIR. PAIN LEVEL ON RIGHT SHOULDER HAS BEEN 5/10; MEDICATED PER EMAR. NO ACUTE CHANGES. NO ACUTE CHANGES. INCISION UNDER BANDAGES; BANDAGES ARE CLEAN WITH NO DRAINAGE VISIBLE. PT HAS VOIDED 300 DESPITE RECIEVING 1000ML OF FLUID; PT STS THAT HE HAS ISSUES WITH URINATION AND THAT IS NORMAL FOR HIM. HAS USED CALL LIGHT APPROPRIETLY.
[2020-07-16 04:40] LABS: Anion Gap 4 mmol/L (6-16); Blood Urea Nitrogen 13 mg/dL (8-24); Bun/Creatinine Ratio 15.4 (12.0-20.0); CO2, Blood 28 mmol/L (21-32); Calcium, Blood 8.3 mg/dL (8.5-10.1); Chloride, Blood 107 mmol/L (98-108); Creatinine, Blood 0.85 mg/dL (0.60-1.20); Glomerular Filtration Rate >60 (60-); Glucose, Blood 71 mg/dL (70-99); Magnesium, Blood 2.1 mg/dL (1.6-2.4); Potassium, Blood 3.5 mmol/L (3.5-5.5); Sodium, Blood 139 mmol/L (136-145)
[2020-07-16] MEDS ORDERED: CEPH500 PO (14:57)
--- NOTE | 2020-07-16 15:10 | NUR ---
DISCHARGE: PT PROVIDED WITH DC INSTRUCTIONS AND PAPERWORK. ALL QUESTIONS HAVE BEEN ANSWERED. PT ESCORTED FROM DEPT VIA WC IN NAD.
== END 2020-07-16 15:15 | disposition home or self-care (01) ==
LOC: ER 08:54 → PCU 08:55 → ENPENDDIS 07-16 14:23 → PCU 07-16 15:15
PROVIDERS: Emergency Medicine; ADMIT Internal Medicine
DX: R00.1 Bradycardia, unspecified (principal); D50.9 Iron deficiency anemia, unspecified; I10 Essential (primary) hypertension; I48.0 Paroxysmal atrial fibrillation; E78.5 Hyperlipidemia, unspecified; K21.9 Gastro-esophageal reflux disease without esophagitis; F41.9 Anxiety disorder, unspecified; F32.9 Major depressive disorder, single episode, unspecified; E66.9 Obesity, unspecified; Z79.82 Long term (current) use of aspirin; Z79.899 Other long term (current) drug therapy; Z20.822 Contact with and (suspected) exposure to COVID-19
CPT/HCPCS: 33208; 33228; 36415; 71045; 71046; 76937; 80048; 80053; 83735; 84484; 85025; 93005; 93010; 96365; 96367; 96376; 99152; 99153; 99285-25; A9270; C1769; C1785; C1894; C1898; G0378; J0690; J1644; J2250; J3010; J7030; J7040; Q9967

== ENCOUNTER 2021-05-22 07:46 | Day surgery (SDC) | payer OTHER ==
[~2021-05-22] VITALS: Ht 180.3 cm; Wt 100.0 kg
[~2021-05-22 07:46] MED LIST changes: +CEPH500 PO
[2021-05-22] MEDS ORDERED: CENTRUM SILVER1 EAC2 PO (08:30)
[2021-05-22] MEDS ORDERED: TAMS.4ER PO (08:30)
[2021-05-22] MEDS ORDERED: SERT100 PO (08:31)
[2021-05-22] MEDS ORDERED: ARTIFICIAL TEAR15 M2 BOTHEYES (08:34)
--- NOTE | 2021-05-22 09:45 | NUR ---
PT AWAKE AND CONVERSING, DENIES PAIN POST PROCEDURE; VSS, 96-98% RA. PT'S AT BEDSIDE, ATTENTIVE.
--- NOTE | 2021-05-22 10:25 | NUR ---
PT DRESSED SELF WITHOUT ISSUE, IV REMOVED-CANNULA INTACT.
--- NOTE | 2021-05-22 10:32 | NUR ---
PT AND RECEIVED DISCHARGE INSTRUCTIONS, MED LIST AND AFTER CARE INSTRUCTIONS; VERBALIZED GOOD UNDERSTANDING. PT LEFT FACILITY VIA W/C, CONDITION STABLE.
== END 2021-05-22 23:47 | disposition home or self-care (01) ==
LOC: MHTC 07:46
DX: I48.0 Paroxysmal atrial fibrillation (principal); Z95.818 Presence of other cardiac implants and grafts; R55 Syncope and collapse; R53.82 Chronic fatigue, unspecified; I10 Essential (primary) hypertension; E78.5 Hyperlipidemia, unspecified; I25.10 Atherosclerotic heart disease of native coronary artery without angina pectoris; K21.9 Gastro-esophageal reflux disease without esophagitis; K57.90 Diverticulosis of intestine, part unspecified, without perforation or abscess without bleeding; C61 Malignant neoplasm of prostate; C43.9 Malignant melanoma of skin, unspecified; F41.9 Anxiety disorder, unspecified; F32.A Depression, unspecified; E66.9 Obesity, unspecified; D64.9 Anemia, unspecified
CPT/HCPCS: 93312; 93325; A9270; J2704; J7030

== ENCOUNTER 2021-06-27 10:51 | Day surgery (SDC) | payer OTHER ==
[~2021-06-27] VITALS: Ht 180.3 cm; Wt 105.1 kg
[~2021-06-27 10:51] MED LIST changes: +ARTIFICIAL TEAR15 M2 BOTHEYES; +SERT100 PO
[2021-06-27] MEDS ORDERED: PREDNISOLO15 MG/5 ML (11:22)
[2021-06-27] MEDS ORDERED: PRED1 (11:22)
[2021-06-27] MEDS ORDERED: MELATONIN5 M1 (11:22)
[2021-06-27] MEDS ORDERED: Calcium Carbon500 MG (11:23)
[2021-06-27] MEDS ORDERED: PANT20 (11:23)
== END 2021-06-27 14:14 | disposition home or self-care (01) ==
LOC: ORSCSDS 10:51
PROVIDERS: Internal Medicine Gastroenterology
PROC: 0DBL8ZX Excision of Transverse Colon, Via Natural or Artificial Opening Endoscopic, Diagnostic (ICD-10-PCS; principal; 2021-06-27 12:15)
PROC: 0DB78ZX Excision of Stomach, Pylorus, Via Natural or Artificial Opening Endoscopic, Diagnostic (ICD-10-PCS; principal; 2021-06-27 12:15)
PROC: 0DB98ZX Excision of Duodenum, Via Natural or Artificial Opening Endoscopic, Diagnostic (ICD-10-PCS; principal; 2021-06-27 12:15)
PROC: 0DB58ZX Excision of Esophagus, Via Natural or Artificial Opening Endoscopic, Diagnostic (ICD-10-PCS; principal; 2021-06-27 12:15)
DX: K62.5 Hemorrhage of anus and rectum (principal); D50.9 Iron deficiency anemia, unspecified; D12.3 Benign neoplasm of transverse colon; K21.9 Gastro-esophageal reflux disease without esophagitis; Z86.010 Personal history of colon polyps; K29.70 Gastritis, unspecified, without bleeding; K57.30 Diverticulosis of large intestine without perforation or abscess without bleeding; K64.8 Other hemorrhoids; Z98.84 Bariatric surgery status; Z79.82 Long term (current) use of aspirin; Z79.899 Other long term (current) drug therapy; Z95.0 Presence of cardiac pacemaker
CPT/HCPCS: 88305; 88342; J2704; J7120

== ENCOUNTER 2023-08-21 17:22 | Inpatient (IN) | payer OTHER ==
[~2023-08-21] VITALS: Ht 180.3 cm; Wt 122.8 kg
[~2023-08-21 17:22] MED LIST changes: +BUPR150ER PO; -BUPR75 PO; +Calcium Carbon500 MG; +MELATONIN5 M1; +PANT20 PO; +PRED1; +PREDNISOLO15 MG/5 ML
[2023-08-21 18:41] LABS: Hematocrit 38.6 % (37.0-53.0); Hemoglobin 12.3 g/dL (13.5-17.5); Mean Corpuscular HGB Conc 31.9 g/dL (31.5-36.5); Mean Corpuscular Volume 97 fL (80-100); Mean Platelet Volume 9.4 fL (9.1-12.4); Platelet Count 87 K/mm3 (150-400); RDW Standard Deviation 53.9 fL (35.1-46.3); Red Blood Cell Count 3.97 M/mm3 (4.30-5.90); White Blood Cell Count 1.24 K/mm3 (4.00-11.30)
[2023-08-21 19:00] LABS: International Normalized Ratio 1.07; Prothrombin Time Results 11.4 Sec (9.7-11.5)
[2023-08-21 19:05] LABS: Albumin, Blood 3.2 g/dL (3.4-5.0); Bilirubin, Direct 0.4 mg/dL (0.0-0.3); Bilirubin, Indirect 0.6 mg/dL (0.1-0.7); Bun/Creatinine Ratio 21.9 (12.0-20.0); Calcium, Blood 8.4 mg/dL (8.5-10.1); Creatinine, Blood 0.92 mg/dL (0.60-1.20); Globulin, Blood 3.1 g/dL (2.2-4.0); Magnesium, Blood 1.6 mg/dL (1.6-2.4); Phosphorus, Blood 1.7 mg/dL (2.5-4.9); Potassium, Blood 3.5 mmol/L (3.5-5.5); Total Protein, Blood 6.3 g/dL (6.4-8.2)
[2023-08-21 19:13] LABS: BAND PERCENT MAN 44 % (0-8); BASOPHILS PERCENT MAN 0 % (0-2); EOSINOPHILS ABSOLUTE MAN 0.02 K/mm3 (0.00-0.68); EOSINOPHILS PERCENT MAN 2 % (0-6); LYMPHOCYTES ABSOLUTE MAN 0.11 K/mm3 (0.84-5.20); LYMPHOCYTES PERCENT MAN 9 % (21-46); METAMYELOCYTE ABSOLUTE MAN 0.01 K/mm3 (0.00-0.00); METAMYELOCYTE PERCENT MAN 1 % (0-0); MONOCYTES PERCENT MAN 0 % (4-13); NEUTROPHILS ABSOLUTE MAN 1.09 K/mm3 (1.96-9.15); SEG NEUTROPHILS PERCENT MAN 44 % (41-73); TOTAL CELLS COUNTED 100
[2023-08-21] MEDS ORDERED: NS 1,000 ML IV SCH ×2 (19:45→20:45)
[2023-08-21 19:52] LABS: Source, Urine Foley catheter
[2023-08-21 19:54] LABS: Appearance, Urine Clear (Clear); Bilirubin, Urine Neg (Neg); Blood, Urine 5+ (Neg); Color, Urine Yellow (P-Yellow); Glucose Qualitative, Urine Neg (Neg); Ketones, Urine Neg (Neg); Leukocyte Esterase, Urine 2+ (Neg); Nitrite, Urine Pos (Neg); Protein, Urine 2+ (Neg); Urobilinogen, Urine NORM (Normal)
[2023-08-21 20:30] LABS: Amorphous Light (0-Heavy); Bacteria Many /hpf; Mucus Light (0-Heavy); Red Blood Cells, Urine 25-50 /hpf (0-2); Squamous Epithelial Cells Rare /hpf (Few)
[2023-08-21] MEDS ORDERED: Acetaminophen 325 MG TABLET PO PRN (22:10)
[2023-08-21] MEDS ORDERED: CefTRIAXone Sodium 1,000 MG in NS 100 ML IV ONE (22:15)
[2023-08-21] MEDS ORDERED: Potassium Phosphate Dibasic 30 MM in Dextrose 5% 500 ML IV STA (22:59)
[2023-08-21] MEDS ORDERED: Mag Sulfate 1 GM/D5% 100ML 100 ML IV STA (22:59)
[2023-08-21] MEDS ORDERED: Potassium Phosphate Dibasic 20 MM in Dextrose 5% 500 ML IV STA (23:00)
[2023-08-22] VITALS (41 sets, daily range): BP systolic 71–115; BP diastolic 49–72
[2023-08-22 01:53] LABS: Source, Urine Foley catheter
[2023-08-22 01:56] LABS: Bilirubin, Urine Neg (Neg); Blood, Urine 5+ (Neg); Glucose Qualitative, Urine Neg (Neg); Ketones, Urine 1+ (Neg); Leukocyte Esterase, Urine 2+ (Neg); Nitrite, Urine Pos (Neg); Protein, Urine 4+ (Neg); Urobilinogen, Urine 1+ (Normal)
[2023-08-22] MEDS ORDERED: Lactated Ringer's 1,000 ML IV SCH ×2 (02:00→08:00)
--- NOTE | 2023-08-22 02:11 | NUR ---
ADMIT PT ADMITTED TO ICU 3 VIA ER AT 0015. PT ARRIVED VIA GURNEY. TRANSFERED OVER TO BED BY STAFF WITH SLIDER SHEET. PT AWAKE A&O X4. MAEW. FOLLOWING INSTRUCTIONS. LUNGS CLEAR ON 3 LITERS VIA NC. RESP EVEN AND NONLABORED. DENIES SOB OR COUGH. HEART RATE REGULAR IN THE 70'S. PT WITH HX PACER MAKER AND WATCHMAN. NO PACER SPIKES NOTED. NO EDEMA. DENIES CHEST PAIN OR PRESSURE. SKIN WARM AND DRY. BT+ ABD SOFT AND NONTENDER. DENIES N/V. HAD BM PLEITEZ SOFT FORMED STOOL VIA BED LEE. IV 20G TO LEFT HAND SALINE LOCKED. IV 20G TO RIGHT AC WITH K PHOS INFUSING. GUZMAN CATH PLACED AT [facility] REMOVED. NEW GUZMAN 16 FR COUDE PLACED, BLOOD TINGED URINE DRAINING. POWER GLIDE 20G 10 CM PLACED TO RIGHT UPPER ARM. CALL TO DR ORR REGARDING IV FLUIDS FOR HYPOTENSION. RT AT BED SIDE PLACING PT ON CPAP.
[2023-08-22 02:16] LABS: Appearance, Urine Bloody (Clear); Color, Urine Brown (P-Yellow)
[2023-08-22 02:20] LABS: Bacteria Many /hpf; Mucus Light (0-Heavy); Red Blood Cells, Urine TNTC /hpf (0-2); Squamous Epithelial Cells Few /hpf (Few)
[2023-08-22 03:54] LABS: Hematocrit 34.3 % (37.0-53.0); Hemoglobin 11.2 g/dL (13.5-17.5); Mean Corpuscular HGB 31.6 pg (26.0-34.0); Mean Corpuscular HGB Conc 32.7 g/dL (31.5-36.5); Mean Corpuscular Volume 97 fL (80-100); Platelet Count 72 K/mm3 (150-400); RDW Coefficient Variation 15.4 % (11.7-14.2); RDW Standard Deviation 54.8 fL (35.1-46.3); Red Blood Cell Count 3.54 M/mm3 (4.30-5.90)
[2023-08-22 04:14] LABS: BAND PERCENT MAN 31 % (0-8); BASOPHILS ABSOLUTE MAN 0.08 K/mm3 (0.00-0.23); BASOPHILS PERCENT MAN 1 % (0-2); EOSINOPHILS ABSOLUTE MAN 0.16 K/mm3 (0.00-0.68); EOSINOPHILS PERCENT MAN 2 % (0-6); LYMPHOCYTES ABSOLUTE MAN 0.08 K/mm3 (0.84-5.20); LYMPHOCYTES PERCENT MAN 1 % (21-46); METAMYELOCYTE ABSOLUTE MAN 0.24 K/mm3 (0.00-0.00); METAMYELOCYTE PERCENT MAN 3 % (0-0); MONOCYTES ABSOLUTE MAN 0.08 K/mm3 (0.16-1.47); MONOCYTES PERCENT MAN 1 % (4-13); NEUTROPHILS ABSOLUTE MAN 7.54 K/mm3 (1.96-9.15); SEG NEUTROPHILS PERCENT MAN 61 % (41-73); TOTAL CELLS COUNTED 100
[2023-08-22 04:17] LABS: Albumin, Blood 2.7 g/dL (3.4-5.0); Albumin/Globulin Ratio 0.9 (0.8-1.8); Bilirubin, Total 0.5 mg/dL (0.1-1.0); Bun/Creatinine Ratio 19.4 (12.0-20.0); Calcium, Blood 7.7 mg/dL (8.5-10.1); Creatinine, Blood 1.24 mg/dL (0.60-1.20); Magnesium, Blood 1.7 mg/dL (1.6-2.4); Phosphorus, Blood 2.2 mg/dL (2.5-4.9); Potassium, Blood 3.5 mmol/L (3.5-5.5); Total Protein, Blood 5.7 g/dL (6.4-8.2)
[2023-08-22] MEDS ORDERED: Potassium Phosphate Dibasic 15 MM in Dextrose 5% 250 ML IV ONE (04:45)
--- NOTE | 2023-08-22 06:05 | NUR ---
SHIFT SUMMARY PT RESTING QUIETLY ON 3 LITERS O2 VIA NC. PT USED CPAP FOR 2HRS THAN REMOVED. BP CONT HYPOTENSIVE BUT MAP GREATER THAN 65. POWER GLIDE PLACE AND GUZMAN CATH CHANGED DURING THE NIGHT. PT MOVING SELF IN BED. K PHOS INFUSING FOR PHOS 2.2. GUZMAN CATH WITH LIGHT BROWN URINE. REPORT TO ON COMING NURSE
[2023-08-22] MEDS ORDERED: Midodrine 5 MG Tab PO SCH (08:00)
[2023-08-22] MEDS ORDERED: Enoxaparin 40 MG/0.4 ML SYR SC SCH (09:00)
[2023-08-22] MEDS ORDERED: Ondansetron HCl 2 MG / ML 2ML Vial IV PRN (12:05)
[2023-08-22] MEDS ORDERED: CefTRIAXone Sodium 1,000 MG in NS 100 ML IV SCH (15:00)
--- NOTE | 2023-08-22 18:31 | NUR ---
SUMMARY PT A/O X4. MIDODRINE STARTED TODAY. BP IMPROVING. NOT TOLERATING MUCH OF MEALS. CONTINUING IVF AND URINE OUTPUT IS GOOD. CHANGED TO PCU STATUS. NO OTHER CHANGES.
--- NOTE | 2023-08-22 19:37 | NUR ---
ASSUMED CARE OF PATIENT AT 1900. REPORT RECEIVED FROM BREA TA. PT RESTING IN BED WITH FAMILY AT BESIDE. CONTINOUS CARDIAC MONITORING IN PLACE SHOWING SR WITH HR IN 70'S-80'S. BP 115/61, MAP OF 75. ON 2LPM O2 VIA NC WITH SATURATION OF 99%. LR INFUSING AT 125 mL/HR. GUZMAN PATENT AND DRAINING RED URINE TO GRAVITY. NO ACUTE NEEDS IDENTIFED AT THIS TIME. SEE SHIFT ASSESSMENT FOR FULL DETAILS.
[2023-08-23] VITALS (12 sets, daily range): BP systolic 91–126; BP diastolic 58–76
[2023-08-23 03:06] LABS: Hemoglobin 11.1 g/dL (13.5-17.5); Mean Corpuscular HGB Conc 32.6 g/dL (31.5-36.5); Mean Corpuscular Volume 95 fL (80-100); Mean Platelet Volume 10.1 fL (9.1-12.4); Platelet Count 62 K/mm3 (150-400); RDW Coefficient Variation 15.7 % (11.7-14.2); RDW Standard Deviation 55.3 fL (35.1-46.3); Red Blood Cell Count 3.58 M/mm3 (4.30-5.90); White Blood Cell Count 10.06 K/mm3 (4.00-11.30)
[2023-08-23 03:31] LABS: Bun/Creatinine Ratio 23.3 (12.0-20.0); Calcium, Blood 8.3 mg/dL (8.5-10.1); Creatinine, Blood 1.16 mg/dL (0.60-1.20); Potassium, Blood 3.7 mmol/L (3.5-5.5)
--- NOTE | 2023-08-23 05:52 | NUR ---
SHIFT SUMMARY PT REMAINED ALERT AND ORIENTED X 4 T/O ENTIRETY OF SHIFT. ABLE TO FOLLOW COMMANDS, MAKE PURPOSEFUL MOVEMENTS, AND MAKE NEEDS KNOWN. AFEBRILE. REPORTED ONE EPISODE OF DYSURIA. MEDICATED PER EMAR WITH GOOD BENEFIT. CONTINOUS CARDIAC MONITORING IN PLACE SHOWING SR WITH HR IN 70'S-80'S. SBP 90'S-120'S, MAP SUSTAINED > 65. ON 2 LPM O2 VIA NC WITH O2 SATURATIONS > 92%. REPORTED DECREASED APPETITE BUT REQUESTED SOMETHING SOFTER THAN HIS DINNER. PT ATE JELLO AND TOLERATED WELL. PIV TO RAC AND L HAND, PG TO TRACEY. WILL CONTINUE TO MONITOR AND REPORT TO ONCOMING RN.
--- NOTE | 2023-08-23 08:04 | NUR ---
AM NOTE... ASSUMED CARE OF PT AT 0700, PT IS A&Ox4. HE WAS ON 2L NC WITH O2 SATS>98% L/S CLEAR T/O SLIGHTLY DIM IN THE BASES. O2 WAS STOPPED AND PT'S O2 SATS CONTINUED TO STAY >90%. PT IS IN SR IN THE 80'S BP IS STABLE WITH MAPS>65. BT PRESENT AND NORMACTIVE. PT IS C/O OF FEELING VERY WEAK BUT OVERALL IMPROVED. TEMP WAS 99.3. GUZMAN IS PATENT AND DRAINING TO GRAVITY. PLANS TO GET PT UP IN THE RECLINER CHAIR THIS SHIFT. CALL LIGHT IN REACH WILL CONTINUE TO MONITOR.
--- NOTE | 2023-08-23 11:29 | NUR ---
PT TRANSFER.... PT WAS TAKEN TO MEDICAL FLOOR, REPORT GIVEN TO YARELI GUIDRY. PT'S GUZMAN WAS D/C'd WNL. ALL OF PT'S BELONGINGS PACKED AND SENT WITH THE PT. PT'S AT THE BEDSIDE, DR. ANDERSON CAME TO UPDATE THE PT AND HIS . PT'S VS STABLE.
--- NOTE | 2023-08-23 15:07 | NUR ---
SHIFT SUMMARY MR GILMORE WAS TRANSFERED FROM ICU TO MEDICAL FLOOR AT 1130HRS. HE IS ORIENTATED TO SELF, PLACE, DATE, APPROPRIATE CONVERSATION. HE WAS EDUCATION ON FALL PREVENTION AND VERBALISED UNDERSTANDING. HE SAID HE HAS NOT BEEN OUT OF BED SINCE ADMISSION. HE STOOD AT THE SIDE OF THE BED AND TRANSFERED TO THE RECLINER WITH 2 PERSON ASSIST, GB AND WALKER RECOMMENDED. UNSTEADY TRANSFER. HE HAD GUZMAN REMOVED IN ICU BEFORE TRANSFER AROUND 1115 AND HAS VOIDED SINCE GUZMAN WAS REMOVED. MR GILMORE DENIED HAVING ANY PAIN ON TRANSFER. IN RECLINER, CALL LIGHT IN REACH.
[2023-08-23] MEDS ORDERED: PROP10 PO (21:54)
[2023-08-23] MEDS ORDERED: Pantoprazole Sodium 40 MG Tab PO SCH (22:20)
[2023-08-24 02:53] VITALS: BP 129/90
--- NOTE | 2023-08-24 06:01 | NUR ---
DUCO POLISHER SUMMARY NO ACUTE CHANGES. PT ALERT AND ORIENTED. ABLE TO MAKE NEEDS KNOWN. PT HAVING FREQUENT INTERVAL URINATION WITH 50-100MLS VOIDED EACH TIME. PT DENIES BURNING OR PAIN WITH URINATION. FIRST URINE WAS DARK REDISH WILLIE COLOR, URINE HAS LIGHTENED UP T/O THE NIGHT. PT REPORTED HEARTBURN AND REQUESTED MEDICATIONS. REVIEW OF EMAR AND HOME MEDS SHOW ALL HOME MEDS HAVE NOT BEEN ORDERED. PT HAS LIST IN HIS ROOM. PT IS UNABLE TO RECALL ALL CURRENT MEDS IN THE CURRENT DOSES AND STATES MANAGES MEDS. CALL TO WINDOWS [employer] ADMINISTRATOR DR TO REPORT AND REQUEST ORDER FOR PROTONIX. NEW ORDER FOR PROTONIX AND REQUEST DAY SHIFT DOCTOR TO REVIEW MEDICATIONS. PT'S TO CLARIFY CORRECT DOSES OF MEDICATION. PT IS ABLE TO MAKE NEEDS KNOWN AND CALL APPROPRIATELY. CALL LIGHT IN REACH.
[2023-08-24 08:07] VITALS: BP 136/78
[2023-08-24] MEDS ORDERED: NS 250 ML IV PRN (08:40)
[2023-08-24] MEDS ORDERED: DOXEPIN HCL6 MG PO (09:42)
[2023-08-24] MEDS ORDERED: Acerola C500 MG PO (09:43)
[2023-08-24] MEDS ORDERED: CALCIUM 500 MG1 EAC2 PO (09:44)
--- NOTE | 2023-08-24 09:47 | NUR ---
MD CALL MED REC DONE WITH AND DR ANDERSNO CALLED AND NOTIFIED.
[2023-08-24] MEDS ORDERED: POLYVINYL ALCOHOL 1.4% Ophthalmic Solution 15 ML BTL BOTHEYES PRN (11:40)
[2023-08-24] MEDS ORDERED: Spironolactone 25 MG Tab PO SCH (12:00)
[2023-08-24] MEDS ORDERED: Atorvastatin 10 MG Tab PO SCH (12:00)
[2023-08-24] MEDS ORDERED: Sertraline HCl 100 MG Tab PO SCH (12:00)
[2023-08-24] MEDS ORDERED: Cholecalciferol 1000 Unit Tablet (=25MCG) PO SCH (12:00)
--- NOTE | 2023-08-24 15:18 | NUR ---
SHIFT SUMMARY MR GILMORE HAS BEEN GETTING STRONGER TODAY. HE HAS WALKED IN THE HALLS 3 TIMES SO FAR WITH WALKER, GAIT BELT AN STAND BY ASSISTANCE. HE DENIED ANY DIZZYNESS AND HAD A STEADY GAIT. HE WALKED A LITTLE FURTHER EACH TIME. THIS MORNING HE C/O GENERAL ACHYNESS ALL OVER, BUT NO SPECIFIC PAIN. UP IN CHAIR FOR MOST OF THE DAY, FEET ELEVATED. BLE EDEMA. VOIDING WITHOUT DYSURIA AROUND 150CC EACH TIME. IN CHAIR NOW, CALL LIGHT IN REACH.
[2023-08-24 15:37] VITALS: BP 122/78
[2023-08-24] MEDS ORDERED: buPROPion HCL 150 MG TAB.SR.12H PO SCH (18:00)
[2023-08-24 20:24] VITALS: BP 139/88
[2023-08-24] MEDS ORDERED: Calcium 500 MG/Vit D 200 Units Tab PO SCH (21:00)
[2023-08-24] MEDS ORDERED: Propranolol HCL 20 MG TAB PO SCH (21:00)
[2023-08-24] MEDS ORDERED: Tamsulosin HCl 0.4 MG Cap PO SCH (21:00)
[2023-08-24] MEDS ORDERED: DOXEPIN 6 MG PO SCH (21:00)
[2023-08-24] MEDS ORDERED: Ascorbic Acid 250 MG Chew PO SCH (21:00)
[2023-08-25] MEDS ORDERED: THERA-D2000 UNIT PO (00:09)
[2023-08-25 03:17] VITALS: BP 137/84
--- NOTE | 2023-08-25 05:13 | NUR ---
DISTRICT FIRE MANAGEMENT OFFICER SUMMARY PT IS A/OX4. ABLE TO MAKE NEEDS KNOWN. NO ACUTE CHANGES. PT ON CPAP T/O THE NIGHT AND CONT BIOX. CALL LIGHT ACCESSIBLE.
[2023-08-25 06:17] LABS: Bun/Creatinine Ratio 20.8 (12.0-20.0); Calcium, Blood 9.2 mg/dL (8.5-10.1); Creatinine, Blood 0.77 mg/dL (0.60-1.20); Potassium, Blood 3.9 mmol/L (3.5-5.5)
[2023-08-25 07:51] VITALS: BP 150/94
[2023-08-25] MEDS ORDERED: buPROPion HCL 150 MG TAB.SR.12H PO SCH (09:00)
[2023-08-25] MEDS ORDERED: AMLO5 PO (10:05)
[2023-08-25] MEDS ORDERED: CEFU500T30 PO (10:06)
[2023-08-25] MEDS ORDERED: SPIR25 PO (10:06)
--- NOTE | 2023-08-25 12:41 | NUR ---
DISCHARGE SUMMARY: PT DISCHARGED HOME WITH HOME HEALTH TODAY. PT EDUCATED ON DISCHARGE MEDICATIONS AND INSTRUCTIONS. PT V/U. PT DECLINED ASSISTANCE WITH GETTING DRESSED. PT DRESSED HIMSELF. ASSISTED PT WITH PACKING UP BELONGINGS. PT ESCORTED TO POV VIA WC WITH . PT ABLE TO SELF TX INTO CAR. BELONGINGS SENT WITH PT.
== END 2023-08-25 12:11 | disposition home health service (06) | DRG 871 ==
LOC: ER 17:22 → ICUE 22:07 → MEDS 08-23 11:51
PROVIDERS: Emergency Medicine; Family Medicine Adult Medicine; Internal Medicine; ADMIT Student in an Organized Health Care Education/Training Program
PROC: 3E033XZ Introduction of Vasopressor into Peripheral Vein, Percutaneous Approach (ICD-10-PCS; principal; 2023-08-21)
PROC: 3E03329 Introduction of Other Anti-infective into Peripheral Vein, Percutaneous Approach (ICD-10-PCS; 2023-08-21)
DX: A41.9 Sepsis, unspecified organism (principal); J96.01 Acute respiratory failure with hypoxia; R65.21 Severe sepsis with septic shock; E87.20 Acidosis, unspecified; N39.0 Urinary tract infection, site not specified; N40.1 Benign prostatic hyperplasia with lower urinary tract symptoms; I10 Essential (primary) hypertension; F41.8 Other specified anxiety disorders; E83.39 Other disorders of phosphorus metabolism; D69.6 Thrombocytopenia, unspecified; R31.0 Gross hematuria; K21.9 Gastro-esophageal reflux disease without esophagitis; I48.0 Paroxysmal atrial fibrillation; Z85.46 Personal history of malignant neoplasm of prostate; Z95.828 Presence of other vascular implants and grafts; Z87.19 Personal history of other diseases of the digestive system; Z79.82 Long term (current) use of aspirin; Z79.899 Other long term (current) drug therapy; Z79.52 Long term (current) use of systemic steroids
CPT/HCPCS: 36415; 51703; 71045; 74177; 80048; 80053; 81001; 82248; 83605; 83735; 84100; 85025; 85027; 85060; 85610; 85730; 87040; 87086; 93005; 93010; 94660; 94762; 96360-59; 96361; 97161; 97530; 99285-25; A9270; C1751; J0696; J2405; J3475; J7030; J7050; J7060; J7120; Q9967

== ENCOUNTER 2024-01-20 06:37 | Day surgery (SDC) | payer OTHER ==
[~2024-01-20] VITALS: Ht 180.3 cm; Wt 120.0 kg
[~2024-01-20 06:37] MED LIST changes: +AMLO5 PO; +ATOR10 PO; +Acerola C500 MG PO; +CALCIUM 500 MG1 EAC2 PO; +CEFU500T30 PO; +DOXE10 PO; +DOXEPIN HCL6 MG PO; +PROP10 PO; +SPIR25 PO; +THERA-D2000 UNIT PO
[2024-01-20 09:41] VITALS: BP 124/89
[2024-01-20] MEDS ORDERED: NS 1,000 ML IV ONE ×2 (10:46→11:18)
[2024-01-20] MEDS ORDERED: Heparin Sodium 1000 Units/ML 10ML MDV ONE (10:46)
[2024-01-20] MEDS ORDERED: Midazolam HCl 1MG / ML 2ML Vial ONE (11:17)
[2024-01-20] MEDS ORDERED: FentaNYL Citrate 50 MCG/ML 2 ML Injection ONE (11:18)
[2024-01-20 13:30] VITALS: BP 136/76
--- NOTE | 2024-01-20 14:00 | NUR ---
PT AND S/O VERBALIZES UNDERSTANDING WRITTEN AND VERBAL INSTRUCTIONS. DENIES QUESTIONS OR NEEDS. VSS. NADN. PT IV DC'D. CATH INTACT. PRESSURE DSG APPLIED. PT DC TO HOME VIA WC BY S/O
== END 2024-01-20 14:19 | disposition home or self-care (01) ==
LOC: MHTC 06:37
DX: Z45.89 Encounter for adjustment and management of other implanted devices (principal); I82.90 Acute embolism and thrombosis of unspecified vein; I10 Essential (primary) hypertension; I48.0 Paroxysmal atrial fibrillation; Z95.0 Presence of cardiac pacemaker; Z79.899 Other long term (current) drug therapy; Z95.828 Presence of other vascular implants and grafts; Z90.49 Acquired absence of other specified parts of digestive tract
CPT/HCPCS: 37193; 76937; 99152; 99153; C1769; C1773; C1887; C1894; J1644; J2250; J3010; J7030; Q9967

== ENCOUNTER 2024-05-31 13:52 | Inpatient (IN) | payer OTHER ==
[~2024-05-31] VITALS: Ht 180.3 cm; Wt 116.9 kg
[~2024-05-31 13:52] MED LIST changes: -BUPR150ER PO; +BUPROPION XL150 M1 PO
[2024-05-31 14:29] LABS: BASOPHILS ABSOLUTE AUTO 0.01 K/mm3 (0.00-0.23); BASOPHILS PERCENT AUTO 0 % (0-2); EOSINOPHILS ABSOLUTE AUTO 0.12 K/mm3 (0.00-0.68); EOSINOPHILS PERCENT AUTO 3 % (0-6); Hematocrit 30.1 % (37.0-53.0); Hemoglobin 9.8 g/dL (13.5-17.5); IMMATURE GRAN ABSOLUTE AUTO 0.01 K/mm3 (0.00-0.10); IMMATURE GRAN PERCENT AUTO 0 % (0-1); LYMPHOCYTES ABSOLUTE AUTO 0.96 K/mm3 (0.84-5.20); LYMPHOCYTES PERCENT AUTO 25 % (21-46); MONOCYTES ABSOLUTE AUTO 0.26 K/mm3 (0.16-1.47); MONOCYTES PERCENT AUTO 7 % (4-13); Mean Corpuscular HGB 32.8 pg (26.0-34.0); Mean Corpuscular HGB Conc 32.6 g/dL (31.5-36.5); Mean Corpuscular Volume 101 fL (80-100); Mean Platelet Volume 10.1 fL (9.1-12.4); NEUTROPHILS ABSOLUTE AUTO 2.43 K/mm3 (1.96-9.15); NEUTROPHILS PERCENT AUTO 64 % (41-73); Platelet Count 109 K/mm3 (150-400); RDW Standard Deviation 51.7 fL (35.1-46.3); Red Blood Cell Count 2.99 M/mm3 (4.30-5.90); White Blood Cell Count 3.79 K/mm3 (4.00-11.30)
[2024-05-31 14:44] LABS: Albumin/Globulin Ratio 1.2 (0.8-1.8); Bilirubin, Total 0.6 mg/dL (0.1-1.0); Bun/Creatinine Ratio 23.5 (12.0-20.0); Creatinine, Blood 0.89 mg/dL (0.60-1.20); Globulin, Blood 2.6 g/dL (2.2-4.0); Potassium, Blood 4.3 mmol/L (3.5-5.5); Total Protein, Blood 5.6 g/dL (6.4-8.2)
[2024-05-31] MEDS ORDERED: FLU VACC TS2024-25(6MOS UP)/PF 45 MCG/0.5 ML SYRINGE IM PRN (15:45)
[2024-05-31] MEDS ORDERED: NS 1,000 ML IV SCH ×2 (15:45)
[2024-05-31] MEDS ORDERED: NS 1,000 ML IV ONE ×2 (15:58→16:52)
[2024-05-31] MEDS ORDERED: Pantoprazole Sodium 40 MG Injection IV SCH (16:00)
[2024-05-31 17:55] VITALS: BP 116/76
[2024-05-31] MEDS ORDERED: Polyethylene Glycol 3350 17 gm PO ONE (18:00)
[2024-05-31 18:06] LABS: Hemoglobin 9.8 g/dL (13.5-17.5)
[2024-05-31] MEDS ORDERED: Phenylephrine HCl 100 MCG/ML-NS 10MLSYR (1MG/10ML) IV ONE (18:50)
[2024-05-31] MEDS ORDERED: Peg/Electrolytes 4,000 ML BTL PT ONE (19:00)
[2024-05-31] MEDS ORDERED: Ondansetron HCl 2 MG / ML 2ML Vial IV SCH (19:00)
--- NOTE | 2024-05-31 19:38 | NUR ---
ASSUMPTION OF CARE ASSUMED PT'S CARE AT 1900,BEDSIDE REPORT COMPLETED.PLAN OF CARE REVIEWED.GALLON OF LOLIS SITTING ON THE BEDSIDE TABLE.PT STATES THAT HE IS WORKING ON IT.DENIES PAIN,DENIES NEEDS.CALL LIGHT AND PT'S ITEMS WITHIN REACH,WILL CONTINUE TO MONITOR.
[2024-05-31 21:02] VITALS: BP 122/86
[2024-06-01 00:38] VITALS: BP 102/68
[2024-06-01 00:51] LABS: Hematocrit 29.4 % (37.0-53.0); Hemoglobin 9.6 g/dL (13.5-17.5)
[2024-06-01 03:21] VITALS: BP 118/65
[2024-06-01 04:40] VITALS: BP 92/60
[2024-06-01] MEDS ORDERED: Pantoprazole Sodium 20 MG Tab PO SCH (06:00)
--- NOTE | 2024-06-01 06:05 | NUR ---
PT WAS AWAKE MOST OF THE NIGHT.PT TOOK LESS THAN HALF OF THE GOLYTELY,HAD 4 LOOSE BLOODY STOOLS.PT DENIES THE NEED FOR ZOFRAN PRIOR TO DRINKING THE FIRST HALF OF THE GOLYTELY.PT HAS BEEN GETTING OUT OF BED INDEPENDENTLY TO USE THE BEDSIDE COMMODE.PT ASLEEP AT THIS ALEC,EASILY AROUSABLE.DENIES PAIN,DENIES NEEDS.WILL GIVE REPORT TO DAYSHIFT NURSE FOR CONTINUITY OF CARE.CALL LIGHT AND PT'S ITEMS WITHIN REACH.
[2024-06-01 06:32] LABS: BASOPHILS ABSOLUTE AUTO 0.03 K/mm3 (0.00-0.23); BASOPHILS PERCENT AUTO 1 % (0-2); EOSINOPHILS ABSOLUTE AUTO 0.13 K/mm3 (0.00-0.68); EOSINOPHILS PERCENT AUTO 4 % (0-6); Hematocrit 28.7 % (37.0-53.0); Hemoglobin 9.3 g/dL (13.5-17.5); IMMATURE GRAN ABSOLUTE AUTO 0.01 K/mm3 (0.00-0.10); IMMATURE GRAN PERCENT AUTO 0 % (0-1); LYMPHOCYTES ABSOLUTE AUTO 0.98 K/mm3 (0.84-5.20); LYMPHOCYTES PERCENT AUTO 29 % (21-46); MONOCYTES ABSOLUTE AUTO 0.22 K/mm3 (0.16-1.47); MONOCYTES PERCENT AUTO 7 % (4-13); Mean Corpuscular HGB 32.4 pg (26.0-34.0); Mean Corpuscular HGB Conc 32.4 g/dL (31.5-36.5); Mean Corpuscular Volume 100 fL (80-100); Mean Platelet Volume 9.6 fL (9.1-12.4); NEUTROPHILS ABSOLUTE AUTO 1.98 K/mm3 (1.96-9.15); NEUTROPHILS PERCENT AUTO 59 % (41-73); Platelet Count 105 K/mm3 (150-400); RDW Standard Deviation 50.4 fL (35.1-46.3); Red Blood Cell Count 2.87 M/mm3 (4.30-5.90); White Blood Cell Count 3.35 K/mm3 (4.00-11.30)
--- NOTE | 2024-06-01 06:34 | NUR ---
PT ARRIVED TO THE FLOOR AT 0330.PT TRANSFERED SELF TO BED.PT REFUSED TO WEAR NONSKID SOCKS DUE TO THE SWELLING IN FEET SECONDARY TO GOUT FLARE UP.PT A&O X3 BUT VERY FORGETFUL.PT GIVEN PRN TORADOL FOR PAIN.PT SLEEPING AT THIS TIME.NAOMI LIGHT AND PT'S ITEMS WITHIN REACH.WILL GIVE REPORT TO DAYSHIFT NURSE FOR CONTINUITY OF CARE.
[2024-06-01 06:53] LABS: Bun/Creatinine Ratio 17.4 (12.0-20.0); Creatinine, Blood 0.81 mg/dL (0.60-1.20); Potassium, Blood 3.8 mmol/L (3.5-5.5)
[2024-06-01] MEDS ORDERED: Peg/Electrolytes 4,000 ML BTL PT ONE (08:00)
[2024-06-01 08:45] VITALS: BP 112/71
--- NOTE | 2024-06-01 09:15 | NUR ---
ASSUMPTION OF CARE: PATIENT IS ALERT AND ORIETNED ABLE OT MAKE NEEDS KNOWN, PLEASANT COOPERATIVE, USES THE CALL LIGHT APPROPRIATELY. VSS. DENIES CHEST PAIN PRESSURE OR SOB AT REST. NO ACUTE CONCERNS, STILL FINISHING GOLYTLY APPROXIMATELY 1.2L REMAINS FOR DAY DOSE, CONITNUING TO CLEAR STILL HAVING BLOOD IN STOOL CONNER RED . VPACED AT 60'S. PLAN OF CARE CONTINUES NPO FROM CLEARS AT 11
[2024-06-01 12:46] LABS: Hematocrit 28.3 % (37.0-53.0); Hemoglobin 9.5 g/dL (13.5-17.5)
[2024-06-01] MEDS ORDERED: Lactated Ringer's 1,000 ML IV SCH (14:45)
[2024-06-01 14:49] VITALS: BP 138/79
--- NOTE | 2024-06-01 14:57 | NUR ---
PT HAS 20G IV TO LEFT FOREARM THAT FLUSHES WELL AND FLOWS TO GRAVITY. PT HAS BACKUP 20G TO L HAND.
[2024-06-01] MEDS ORDERED: propofoL 40 ML IV ONE (15:17)
--- NOTE | 2024-06-01 15:18 | NUR ---
PT BROUGHT FROM PCU TO DAY SURGERY FOR PROCEDURE WITH DR PARNELL. History, Chart, Medications and Allergies reviewed before start of procedure. Lungs clear T/O to Auscultation. Patient confirms NPO status and agrees with scheduled surgery. Pre-Op teaching done. Pt verbalizes understanding. PT BELONGINGS LEFT IN PERSONAL ROOM ON PCU.
--- NOTE | 2024-06-01 15:29 | NUR ---
06/01/24 1529 Enoc Valadez MONITOR INTACT WITH CONTINUOUS PULSE OXIMETRY, CONTINUOUS END TITAL CO2, 3-LEAD EKG AND INTERMITTENT BLOOD PRESSURE. ANESTHESIA PER NIC ETL DATABASE DEVELOPER
--- NOTE | 2024-06-01 18:03 | NUR ---
EOS: PATIENT WITH COLONOSCOPY CLIPS PLACED, BLOOD PRESSURE DROPPED DURING AND MEDICATION GIVEN TO IMPORVED, ASSUMING FROM PROPOFOL. PATIENT OVERALL IMRPVOED, BLOOD PRESSURES STABLE AFEBRILE. NO ACUTE CONCERNS, DENIES CHEST PAIN PRESSURE OR SOB AT REST. PATIENT STILL ALERT AND ORIENTED X4. ABLE TO MAKE NEEDS KNOWN, MADE SBA UNTIL RN CLEARS DUE TO ABOVE. TOLERATED HIS MEAL. PLAN OF CARE CONTINUES.
[2024-06-01 19:37] VITALS: BP 120/62
[2024-06-01] MEDS ORDERED: Doxepin HCL 10 MG CAP PO SCH (21:00)
[2024-06-01] MEDS ORDERED: Propranolol HCL 20 MG TAB PO SCH (21:00)
[2024-06-01] MEDS ORDERED: Tamsulosin HCl 0.4 MG Cap PO SCH (21:00)
[2024-06-01] MEDS ORDERED: Melatonin 3 MG Tab PO SCH (21:00)
[2024-06-02 00:41] VITALS: BP 116/66
[2024-06-02 04:10] LABS: Hematocrit 25.3 % (37.0-53.0); Hemoglobin 8.2 g/dL (13.5-17.5); Mean Corpuscular HGB 32.4 pg (26.0-34.0); Mean Corpuscular HGB Conc 32.4 g/dL (31.5-36.5); Mean Corpuscular Volume 100 fL (80-100); Mean Platelet Volume 10.1 fL (9.1-12.4); Platelet Count 101 K/mm3 (150-400); RDW Standard Deviation 51.4 fL (35.1-46.3); Red Blood Cell Count 2.53 M/mm3 (4.30-5.90); White Blood Cell Count 2.71 K/mm3 (4.00-11.30)
[2024-06-02 04:23] VITALS: BP 104/69
[2024-06-02 04:33] LABS: Bun/Creatinine Ratio 11.8 (12.0-20.0); Creatinine, Blood 0.84 mg/dL (0.60-1.20); Potassium, Blood 3.7 mmol/L (3.5-5.5)
--- NOTE | 2024-06-02 05:06 | NUR ---
PATIENT SLEPT MOST OF SHIFT NO COMPLAINTS OF PAIN. VOIDING IN GOOD AMOUNTS. NO BM DURING THE NIGHT. VSS POSSIBLE DISCHARGE TO HOME TODAY. CONTINUE CARE
[2024-06-02 08:02] VITALS: BP 116/68
[2024-06-02] MEDS ORDERED: Atorvastatin 10 MG Tab PO SCH (09:00)
[2024-06-02] MEDS ORDERED: Cholecalciferol 1000 Unit Tablet (=25MCG) PO SCH (09:00)
[2024-06-02] MEDS ORDERED: BuPROPion HCl 75 MG Tab PO SCH (09:00)
[2024-06-02 11:27] VITALS: BP 100/54
--- NOTE | 2024-06-02 12:25 | NUR ---
DISCHARGE SUMMARY THE PT IS A&OX4, CALLED APPROPRAITELY, IND IN THE ROOM, AND MADE HIS NEEDS KNOWN. VITAL SIGNS REMAIN STABLE. PT HAD A BOWEL MOVMENT THIS SHIFT AND ANOTHER RN REPORTED ABSENT OF ANY SIGNS OF BLEEDS. PT WAS DISCHARGED WITH ALL HIS BELONGINGS AND NO NEW MEDICATIONS. HE WAS INSTRUCTED TO D/C SERTRALINE D/T BLEED RISKS AND THE INCREASED RISK OF DEPRESSION AND SI IDEATION D/T STOPPING SSRI. PT STATED HE WILL DISCUSS THIS WITH HIS . PT VERBALIZED UNDERSTANDING FOR FOLOW UP APT NEST FRIDAY WITH HIS PCP. IV'S D/C'D BY THIS RN. NO FURTHER NOTES.
== END 2024-06-02 12:30 | disposition home or self-care (01) | DRG 378 ==
LOC: ER 13:52 → PCU 15:41
PROVIDERS: Emergency Medicine; Internal Medicine Gastroenterology; ADMIT Internal Medicine
PROC: 30233N1 Transfusion of Nonautologous Red Blood Cells into Peripheral Vein, Percutaneous Approach (ICD-10-PCS; 2024-05-31)
PROC: 0DJD8ZZ Inspection of Lower Intestinal Tract, Via Natural or Artificial Opening Endoscopic (ICD-10-PCS; principal; 2024-06-01 15:30)
DX: K57.31 Diverticulosis of large intestine without perforation or abscess with bleeding (principal); Q43.8 Other specified congenital malformations of intestine; I10 Essential (primary) hypertension; K21.9 Gastro-esophageal reflux disease without esophagitis; F41.9 Anxiety disorder, unspecified; F32.A Depression, unspecified; K64.4 Residual hemorrhoidal skin tags; D50.9 Iron deficiency anemia, unspecified; I95.9 Hypotension, unspecified; E53.8 Deficiency of other specified B group vitamins; I48.0 Paroxysmal atrial fibrillation; K63.5 Polyp of colon; Z87.19 Personal history of other diseases of the digestive system; Z85.46 Personal history of malignant neoplasm of prostate; Z90.49 Acquired absence of other specified parts of digestive tract; Z79.899 Other long term (current) drug therapy; Z98.890 Other specified postprocedural states; Z86.19 Personal history of other infectious and parasitic diseases; Z86.73 Personal history of transient ischemic attack (TIA), and cerebral infarction without residual deficits; Z95.818 Presence of other cardiac implants and grafts; Z95.0 Presence of cardiac pacemaker; Z87.440 Personal history of urinary (tract) infections
CPT/HCPCS: 36415; 80048; 80053; 85014; 85018; 85025; 85027; 86850; 86900; 86901; 93005; 93010; 99285-25; A9270; J2371; J2470; J2704; J7030; J7120